=== PATIENT | female | born 1965 | race Caucasian/White ===

== ENCOUNTER 2016-11-17 17:38 | Emergency (ER) | payer MEDICARE, MEDICAID ==
[2016-11-17] MEDS ORDERED: Albuterol/Ipratropium NEB.SOL* Albuterol 2.5 MG/Ipratropium 0.5 MG 3 ML INH ONE (18:43)
[2016-11-17 19:09] LABS: Hematocrit 37 % (35-47); Hemoglobin 12.1 g/dl (12.0-16.0); Mean Corpuscular HGB Conc 32 g/dl (31-36); Mean Corpuscular Hemoglobin 27 pg (27-31); Mean Corpuscular Volume 85 fL (80-97); Mean Platelet Volume 9 um3 (7.4-10.4); Red Blood Count 4.41 10^6/ul (4.0-5.4); Red Cell Distribution Width 15 % (10.5-15); White Blood Count 6.3 10^3/ul (3.5-10.8)
[2016-11-17 19:23] LABS: Albumin 4.1 g/dL (3.2-5.2); BUN/Creatinine Ratio 22.2 (8-20); Calcium 10.5 mg/dL (8.6-10.3); EGFR African American 76.4 (>60); EGFR Non-African American 59.4 (>60); Globulin 3.2 g/dL (2-4); Potassium 4.2 mmol/L (3.5-5.0); Total Bilirubin 0.2 mg/dL (0.2-1.0); Total Protein 7.3 g/dL (6.4-8.9)
[2016-11-17] MEDS ORDERED: Iodixanol* (CONTRAST) 320 MG/ML 100 ML SDV IV ONE (19:31)
--- NOTE | 2016-11-17 20:34 | RAD ---
Indication: COPD, shortness of breath. Contrast: Administered 159.6 ml of VISAPAQUE 320 mgi/ml CTA of the chest was performed after IV contrast administration. Coronal and sagittal reconstructed images were obtained. The pulmonary arterial tree is well opacified. There are no filling defects present to suggest pulmonary embolus. The aorta demonstrates no evidence of aneurysm or aortic dissection. The heart demonstrates no pericardial effusion. The trachea and major bronchi appear patent. The lung pineda demonstrate no evidence of alveolar consolidation. No focal masses are noted. A large amount of collaterals are noted along the right chest wall. Etiology of this is unclear. The axilla demonstrates no evidence of abnormal adenopathy. IMPRESSION: No evidence of pulmonary embolus is noted.
[2016-11-17 21:17] VITALS: BP 110/83
--- NOTE | 2016-12-01 20:32 | ED ---
Ino Edwards Salem, scribed for Wilda Dudley MD on 11/17/16 at 1841 . Shortness of Breath - HPI Summary HPI Summary: Patient is a 51 y/o F who presents to the ED with SOB for the past 3 months. She reports high BP (146/81 upon examination) and coughing. She also reports sharp pain with deep breaths in left anterior chest at 0930 this morning and cramping in her legs, worse on right. She states that she was diagnosed with PNA 2 days ago. She also states that she has been taking Z-pack on and off for the past 3 months, as well as Prednisone and Levaquin since August 2016. PMHx of COPD, but pt does not use O2 at home. She states that she does use a Nebulizer, but it makes her shake. Pt also states that she stopped smoking in 2011. - History of Current Complaint Chief Complaint: EDShortnessOfBreath Time Seen by Provider: 11/17/16 18:17 Hx Obtained From: Patient Onset/Duration: Gradual Onset, Lasting Weeks, Still Present Timing: Constant Current Severity: Moderate Dyspnea At: Rest Aggrevating Factors: Deep Breaths - Pain. Alleviating Factors: Nothing Associated Signs & Symptoms: Cough (Nonproductive) - Allergy/Home Medications Allergies/Adverse Reactions: Allergies Allergy/AdvReac Type Severity Reaction Status Date / Time Amoxicillin [From Augmentin] Allergy Intermediate Difficulty Verified 10/18/16 10:54 Breathing Ciprofloxacin [From Cipro] Allergy Intermediate Difficulty Verified 10/18/16 10: 54 Breathing Clavulanic Acid Allergy Intermediate Difficulty Verified 10/18/16 10:54 [From Augmentin] Breathing Erythromycin Allergy Intermediate Difficulty Verified 10/18/16 10:54 Breathing Morphine Allergy Intermediate See Comment Verified 10/18/16 10:54 Penicillins [PCN] Allergy Intermediate Difficulty Verified 10/18/16 10:54 Breathing Metoclopramide [From Reglan] AdvReac Unknown PSYCHOSIS Verified 10/18/16 10:54 PMH/Surg Hx/FS Hx/Imm Hx Endocrine/Hematology History: Reports: Hx Thyroid Disease - thyroid cancer with resection Denies: Hx Diabetes - TESTING FOR DIABETES, Hx Anemia, Hx Unexplained Bleeding Cardiovascular History: Reports: Hx Angina, Hx Cardiac Arrest - April 2011 seen at [facility] [place], possible small cardiac arrest per patient report, Hx Hypotension, Hx Hypertension - OCC R/T PAIN OR STRESS Denies: Hx Aneurysm, Hx Angioplasty, Hx Auto Implanted Cardiovert Defib, Hx Cardiomegaly, Hx Congenital Heart Disease, Hx Congestive Heart Failure, Hx Coronary Artery Disease, Hx Deep Vein Thrombosis, Hx Hypercholesterolemia, Hx Pacemaker/ICD, Hx Peripheral Vascular Disease, Hx Rheumatic Fever, Hx Syncope, Hx Valvular Heart Disease, Other Cardiovascular Problems/Disorders Respiratory History: Reports: Hx Asthma, Hx Chronic Obstructive Pulmonary Disease (COPD), Hx Pneumonia, Hx Seasonal Allergies, Hx Sleep Apnea - DOES NOT USE CPAP, Other Respiratory Problems/Disorders - Hx COPD Denies: Hx Cystic Fibrosis, Hx Lung Cancer, Hx Pleural Effusion, Hx Pulmonary Edema, Hx Pulmonary Embolism GI History: Reports: Hx Gastroesophageal Reflux Disease Denies: Hx Cirrhosis, Hx Crohn's Disease, Hx Diverticulosis, Hx Gall Bladder Disease, Hx Gastrointestinal Bleed, Hx Hiatal Hernia, Hx Irritable Bowel, Hx Jaundice, Hx Obstructive Bowel, Hx Ileostomy, Hx Pyloric Stenosis, Hx Ulcer Comment Only: Other GI Disorders - ulcer, incontinence at times History: Reports: Hx Kidney Stones, Other Problems/Disorders - cervical cancer with hysterectomy Denies: Hx Dialysis, Hx Renal Disease Musculoskeletal History: Reports: Hx Arthritis, Hx Rheumatoid Arthritis, Hx Back Problems, Hx Bursitis - L KNEE, Hx Orthopedic Injury, Other Musculoskeletal History - LAMINECTOMY 2007 Denies: Hx Congenital Bone Abnormalities, Hx Fibromyalgia, Hx Gout, Hx Osteoporosis, Hx Scoliosis, Hx Tendonitis Sensory History: Reports: Hx Contacts or Glasses - glasses, Hx Vision Problem Denies: Hx Cataracts, Hx Eye Injury, Hx Eye Prosthesis, Hx Glaucoma, Hx Macular Degeneration, Hx Deafness, Hx Hearing Aid, Hx Hearing Problem, Other Sensory Impairments Opthamlomology History: Reports: Hx Contacts or Glasses - glasses, Hx Vision Problem Denies: Hx Cataracts, Hx Eye Injury, Hx Eye Prosthesis, Hx Glaucoma, Hx Macular Degeneration, Other Sensory Impairments Neurological History: Reports: Hx Headaches, Hx Migraine, Hx Seizures - A CHILD R/T MIGRAINES, Hx Spinal Cord Injury Psychiatric History: Reports: Hx Anxiety - takes xanax, Hx Depression Denies: Hx Panic Disorder - Cancer History Cancer Type, Location and Year: CERVICAL CARCINOMA, THYROID CANCER Hx Chemotherapy: No Hx Radiation Therapy: Yes - Surgical History Surgery Procedure, Year, and Place: LUMBAR SURGERY L3-S1 October. 1979 EYE INJURY [place]- CLEARED IN 2008 VIA ORBIT X-RAYS BY DR [place]. 1991 [place]. 1995 BILATERAL TUBAL LIGATION, [place]. hysterectomy/[place]. 2003 BACK TUMOR BENIGN [facility]. 2007 L3,4,5 DISCECTOMY [facility] [place]. 2003 BREAST BIOPSY [place]. 2012 BACK SURGERY [place] [place]. MULTIPLE RIGHT FOOT SURGERIES ONE AT [facility] [place]. THYROID Hx Anesthesia Reactions: Yes - PT STATES WOKE UP DURING FOOT SURGERY 2009 [facility] [place] - Immunization History Date of Tetanus Vaccine: unknown Infectious Disease History: No Infectious Disease History: Denies: Hx Hepatitis, Hx Tuberculosis, Traveled Outside the [place] in Last 30 Days - Family History Known Family History: Positive: Hypertension, Other - Breast cancer. - Social History Lives: With Family - Daughter. Alcohol Use: None Hx Substance Use: No Substance Use Type: Reports: None Hx Tobacco Use: Yes Smoking Status (MU): Former Smoker Type: Cigarettes Length of Time of Smoking/Using Tobacco: 30 YRS Have You Smoked in the Last Year: No Review of Systems Positive: Other - Lump on right and shoulder. Positive: Chest Pain, Other - High BP. Positive: Shortness Of Breath, Cough Positive: Other - Cramping legs, worse on right. All Other Systems Reviewed And Are Negative: Yes Physical Exam Triage Information Reviewed: Yes Vital Signs On Initial Exam: Initial Vitals Temp Pulse Resp BP Pulse Ox 96.8 F 87 20 146/81 100 11/17/16 17:41 11/17/16 17:41 11/17/16 17:41 11/17/16 17:41 11/17/16 17:41 Vital Signs Reviewed: Yes Appearance: Positive: Well-Appearing, No Pain Distress, Obese Skin: Positive: Warm, Skin Color Reflects Adequate Perfusion, Dry Eyes: Positive: EOMI, BILL Neck: Positive: Supple, Nontender Respiratory/Lung Sounds: Positive: Clear to Auscultation, Breath Sounds Present. Negative: Rales, Rhonchi, Wheezes Cardiovascular: Positive: RRR. Negative: Murmur, Rub Abdomen Description: Positive: Nontender, Soft Musculoskeletal: Positive: Strength/ROM Intact Neurological: Positive: Sensory/Motor Intact, Alert, Oriented to Person Place, Time, CN Intact II-III Psychiatric: Positive: Affect/Mood Appropriate Diagnostics - Vital Signs Vital Signs Temp Pulse Resp BP Pulse Ox 11/17/16 18:23 20 11/17/16 17:44 96.8 F 85 20 146/81 100 11/17/16 17:41 96.8 F 87 20 146/81 100 - Laboratory Result Diagrams: 11/17/16 18:55 11/17/16 18:55 Lab Statement: Any lab studies that have been ordered have been reviewed, and results considered in the medical decision making process. - CT CHEST/Thorax CT Interpretation Completed By: Radiologist - IMPRESSION: No evidence of pulmonary embolus is noted. - EKG 2017 EKG Interpretation: NSR @ 77 bpm. Nml. - Additional Comments Diagnostic Additional Comments: Trop 1: 0.00 Re-Evaluation - Re-Evaluation First Eval Re-Evaluation Time: 20:55 Comment: Pt has thyroid pain and a lymphadenopathy. She will receive referral. Pt is agreeable. Course/Dx - Diagnoses Provider Diagnoses: Dyspnea Discharge - Discharge Plan Condition: Stable Disposition: HOME Patient Education Materials: Dyspnea (ED) Referrals: Kaushik Laurent MD [Medical Doctor] - Jennifer Messina MD [Medical Doctor] - Additional Instructions: Please follow up with Dr. Messina for dyspnea and asthma. In addition, follow up with Dr. Laurent for thyroid pain and lymphadenopathy. The documentation as recorded by the Ino astorga Salem accurately reflects the service I personally performed and the decisions made by me, Wilda Dudley MD.
== END 2016-11-17 21:15 | disposition home or self-care (01) ==
LOC: ED 17:38
DX: R06.00 Dyspnea, unspecified (principal); R06.02 Shortness of breath; R05 Cough; R07.9 Chest pain, unspecified; Z87.891 Personal history of nicotine dependence
CPT/HCPCS: 36415; 71275; 80053; 83605; 84484; 85025; 87040; 93005; 94640; 99282; A9270-GY; Q9967

== ENCOUNTER 2017-06-05 11:50 | Emergency (ER) | payer MEDICARE, MEDICAID ==
[2017-06-05 13:22] VITALS: BP 176/116
== END 2017-06-05 14:09 | disposition left against medical advice (07) ==
LOC: ED 11:50
DX: R07.9 Chest pain, unspecified (principal); Z53.21 Procedure and treatment not carried out due to patient leaving prior to being seen by health care provider
CPT/HCPCS: 93005

== ENCOUNTER 2017-06-06 09:47 | Emergency (ER) | payer MEDICARE, MEDICAID ==
--- NOTE | 2017-06-06 10:15 | ED ---
Abdominal Pain/Female - HPI Summary HPI Summary: 51F presents with abdominal pain for past month. She states she has been suffering from right flank pain for the past month as she has known renal stones. She states pain is sharp. She states starts in right flank to RUQ. She had CT on that showed she had right renal stone. She took ibuprofen and tramadol and pain is 10/10. She has not seen a urologist for this yet. She admits to nausea but no vomiting. She had an episode of diarrhea two days ago. She states pain is now in RUQ for past day. She also admits to chest pain on the left side of the chest that is intermittent for past day. She states the pain is sharp in nature. The pain lasts a couple minutes at a time. She does not know any triggers for the chest pain. She denies any diaphoresis or SOB. She denies any cardiac history. Family history of IA unsure what age of mom. only medical condition is PMH of thyroid cancer. She used to smoke. She had hysterectomy and appendectomy. sees maria de jesus for urology. has had lithrotripsy before. - History of Current Complaint Chief Complaint: EDAbdPain Stated Complaint: ABD PAIN Time Seen by Provider: 06/06/17 09:57 Pain Intensity: 8 Allergies/Adverse Reactions: Allergies Allergy/AdvReac Type Severity Reaction Status Date / Time Amoxicillin [From Augmentin] Allergy Intermediate Difficulty Verified 06/06/17 09:51 Breathing Ciprofloxacin [From Cipro] Allergy Intermediate Difficulty Verified 06/06/17 09: 51 Breathing Clavulanic Acid Allergy Intermediate Difficulty Verified 06/06/17 09:51 [From Augmentin] Breathing Erythromycin Allergy Intermediate Difficulty Verified 06/06/17 09:51 Breathing Morphine Allergy Intermediate See Comment Verified 06/06/17 09:51 Penicillins [PCN] Allergy Intermediate Difficulty Verified 06/06/17 09:51 Breathing Metoclopramide [From Reglan] AdvReac Unknown PSYCHOSIS Verified 06/06/17 09:51 PMH/Surg Hx/FS Hx/Imm Hx Endocrine/Hematology History: Reports: Hx Thyroid Disease - thyroid cancer with resection Denies: Hx Diabetes - TESTING FOR DIABETES, Hx Anemia, Hx Unexplained Bleeding Cardiovascular History: Reports: Hx Angina, Hx Cardiac Arrest - April 2011 seen at [facility] [place], possible small cardiac arrest per patient report, Hx Hypotension, Hx Hypertension - OCC R/T PAIN OR STRESS Denies: Hx Aneurysm, Hx Angioplasty, Hx Auto Implanted Cardiovert Defib, Hx Cardiomegaly, Hx Congenital Heart Disease, Hx Congestive Heart Failure, Hx Coronary Artery Disease, Hx Deep Vein Thrombosis, Hx Hypercholesterolemia, Hx Pacemaker/ICD, Hx Peripheral Vascular Disease, Hx Rheumatic Fever, Hx Syncope, Hx Valvular Heart Disease, Other Cardiovascular Problems/Disorders Respiratory History: Reports: Hx Asthma, Hx Chronic Obstructive Pulmonary Disease (COPD), Hx Pneumonia, Hx Seasonal Allergies, Hx Sleep Apnea - DOES NOT USE CPAP, Other Respiratory Problems/Disorders - Hx COPD Denies: Hx Cystic Fibrosis, Hx Lung Cancer, Hx Pleural Effusion, Hx Pulmonary Edema, Hx Pulmonary Embolism GI History: Reports: Hx Gastroesophageal Reflux Disease Denies: Hx Cirrhosis, Hx Crohn's Disease, Hx Diverticulosis, Hx Gall Bladder Disease, Hx Gastrointestinal Bleed, Hx Hiatal Hernia, Hx Irritable Bowel, Hx Jaundice, Hx Obstructive Bowel, Hx Ileostomy, Hx Pyloric Stenosis, Hx Ulcer Comment Only: Other GI Disorders - ulcer, incontinence at times History: Reports: Hx Kidney Stones, Other Problems/Disorders - cervical cancer with hysterectomy Denies: Hx Dialysis, Hx Renal Disease Musculoskeletal History: Reports: Hx Arthritis, Hx Rheumatoid Arthritis, Hx Back Problems, Hx Bursitis - L KNEE, Hx Orthopedic Injury, Other Musculoskeletal History - LAMINECTOMY 2007 Denies: Hx Congenital Bone Abnormalities, Hx Fibromyalgia, Hx Gout, Hx Osteoporosis, Hx Scoliosis, Hx Tendonitis Sensory History: Reports: Hx Contacts or Glasses - glasses, Hx Vision Problem Denies: Hx Cataracts, Hx Eye Injury, Hx Eye Prosthesis, Hx Glaucoma, Hx Macular Degeneration, Hx Deafness, Hx Hearing Aid, Hx Hearing Problem, Other Sensory Impairments Opthamlomology History: Reports: Hx Contacts or Glasses - glasses, Hx Vision Problem Denies: Hx Cataracts, Hx Eye Injury, Hx Eye Prosthesis, Hx Glaucoma, Hx Macular Degeneration, Other Sensory Impairments Neurological History: Reports: Hx Headaches, Hx Migraine, Hx Seizures - A CHILD R/T MIGRAINES, Hx Spinal Cord Injury, Other Neuro Impairments/Disorders - PAIN CLINIC PT Psychiatric History: Reports: Hx Anxiety - takes xanax, Hx Depression Denies: Hx Panic Disorder - Cancer History Cancer Type, Location and Year: CERVICAL CARCINOMA, THYROID CANCER Hx Chemotherapy: No Hx Radiation Therapy: Yes - Surgical History Surgery Procedure, Year, and Place: LUMBAR SURGERY L3-S1 MAY 18,2016. 1979 EYE INJURY [place]- CLEARED IN 2008 VIA ORBIT X-RAYS BY DR [place]. 1991 [place]. 1995 BILATERAL TUBAL LIGATION, [place]. hysterectomy/2004 [place]. 2003 BACK TUMOR BENIGN [place]. 2007 L3,4,5 DISCECTOMY [facility] [place]. 2003 BREAST BIOPSY [place]. 2012 BACK SURGERY [facility] [place]. MULTIPLE RIGHT FOOT SURGERIES ONE AT [facility] [place]. THYROID Hx Anesthesia Reactions: Yes - PT STATES WOKE UP DURING FOOT SURGERY 2009 [facility] [place] - Immunization History Date of Tetanus Vaccine: unknown Infectious Disease History: No Infectious Disease History: Denies: Hx Hepatitis, Hx Tuberculosis, Traveled Outside the [place] in Last 30 Days - Family History Known Family History: Positive: Cardiac Disease, Hypertension, Other - Breast cancer. - Social History Alcohol Use: None Hx Substance Use: No Substance Use Type: Reports: None, Prescribed Hx Tobacco Use: Yes Smoking Status (MU): Former Smoker Type: Cigarettes Length of Time of Smoking/Using Tobacco: 30 YRS Have You Smoked in the Last Year: No Review of Systems Negative: Fever Positive: Chest Pain Negative: Shortness Of Breath, Cough Positive: Abdominal Pain, Nausea. Negative: Vomiting, Diarrhea All Other Systems Reviewed And Are Negative: Yes Physical Exam Triage Information Reviewed: Yes Vital Signs On Initial Exam: Initial Vitals Temp Pulse Resp BP Pulse Ox 97.9 F 65 16 180/125 99 06/06/17 09:51 06/06/17 09:51 06/06/17 09:51 06/06/17 09:51 06/06/17 09:51 Vital Signs Reviewed: Yes Appearance: Positive: Well-Appearing Skin: Positive: Warm, Dry Head/Face: Positive: Normal Head/Face Inspection Eyes: Positive: Normal, EOMI, BILL, Conjunctiva Clear ENT: Positive: Normal ENT inspection, Pharynx normal, TMs normal Respiratory/Lung Sounds: Positive: Clear to Auscultation, Breath Sounds Present , Other - nontender chest wall Cardiovascular: Positive: Normal, RRR Abdomen Description: Positive: Soft, CVA Tenderness (R), Other: - tenderness RUQ and RLQ, pos delgado Bowel Sounds: Positive: Present Musculoskeletal: Positive: Normal Neurological: Positive: Normal Psychiatric: Positive: Normal - [place] Coma Scale Coma Scale Total: 15 Diagnostics - Vital Signs Vital Signs Temp Pulse Resp BP Pulse Ox 06/06/17 09:51 97.9 F 65 16 180/125 99 - Laboratory Result Diagrams: 06/06/17 10:29 06/06/17 10:29 Lab Statement: Any lab studies that have been ordered have been reviewed, and results considered in the medical decision making process. - Ultrasound No standard instances Ultrasound Interpretation: Positive (See Comments) - IMPRESSION: RIGHT NEPHROLITHIASIS WITHOUT HYDRONEPHROSIS Ultrasound Interpretation Completed By: Radiologist - EKG No standard instances Cardiac Rate: NL EKG Rhythm: Sinus Rhythm ST Segment: Normal EKG Interpretation: normal sinus rhythm EKG Comparison: No Significant Change Abdominal Pain Fem Course/Dx - Course Course Of Treatment: 51F presents with abdominal pain for past month. She states she has been suffering from right flank pain for the past month as she has known renal stones. She states pain is sharp. She states starts in right flank to RUQ. She had CT on that showed she had right renal stone. She took ibuprofen and tramadol and pain is 10/10. She has not seen a urologist for this yet. She admits to nausea but no vomiting. She had an episode of diarrhea two days ago. She states pain is now in RUQ for past day. She also admits to chest pain on the left side of the chest that is intermittent for past day. She states the pain is sharp in nature. She denies any diaphoresis or SOB. She denies any cardiac history. Family history of IA unsure what age of mom. only medical condition is PMH of cancer. She used to smoke. She had hysterectomy. on exam lungs CTA, heart RRR. abdomen tenderness RUQ and right flank. ekg normal sinus rhythm and same as yesterday when LWBS. troponin 1st negative. labs 5.7. crp 9.96. with second troponin normal hear score is 2. u/s shows right neprolithasis without hydro. sign out to Mariely BRYSON pending second troponin, urine, and chest xray. - Diagnoses Differential Diagnosis: Positive: Gall Bladder Disease, IA, Renal Colic, Urinary Tract Infection Provider Diagnoses: Abdominal pain, Chest pain, Renal stone Discharge - Discharge Plan Condition: Stable Disposition: OTHER Discharge Disposition Comment: signed out to Mariely BRYSON pending u/s and troponin Referrals: Franck Jones MD [Primary Care Provider] - Brien Villanueva MD [Medical Doctor] -
[2017-06-06] MEDS ORDERED: NS 0.9% 1000 ML* 1,000 ML IV ONE (10:42)
[2017-06-06 10:48] LABS: Hematocrit 37 % (35-47); Hemoglobin 12.3 g/dl (12.0-16.0); Mean Corpuscular HGB Conc 33 g/dl (31-36); Mean Corpuscular Hemoglobin 29 pg (27-31); Mean Corpuscular Volume 87 fL (80-97); Mean Platelet Volume 9 um3 (7.4-10.4); Red Blood Count 4.26 10^6/ul (4.0-5.4); Red Cell Distribution Width 15 % (10.5-15); White Blood Count 5.7 10^3/ul (3.5-10.8)
[2017-06-06 11:07] LABS: Albumin 3.8 g/dL (3.2-5.2); BUN/Creatinine Ratio 23.4 (8-20); Calcium 10.1 mg/dL (8.6-10.3); EGFR African American 126.3 (>60); EGFR Non-African American 98.2 (>60); Globulin 2.7 g/dL (2-4); Potassium 4.2 mmol/L (3.5-5.0); Total Bilirubin 0.3 mg/dL (0.2-1.0); Total Protein 6.5 g/dL (6.4-8.9)
[2017-06-06] MEDS ORDERED: HYDROmorphone INJ* 2 MG/ML CARPUJECT SYRINGE IV SLOW PU ONE (11:34)
[2017-06-06] MEDS ORDERED: Ondansetron INJ* 2 MG/ML VIAL IV ONE (11:46)
--- NOTE | 2017-06-06 12:04 | RAD ---
HISTORY: Right upper quadrant pain COMPARISONS: CT dated June 03, 2017 TECHNIQUE: Multiple transverse and longitudinal ultrasound images were obtained of the abdomen using grayscale and color Doppler imaging. Additional images were obtained of the bladder. FINDINGS: LIVER: The liver is normal in shape, size, contour, and echogenicity. There are no focal parenchymal masses. There is normal hepatopedal flow of the portal vein on Doppler imaging. BILIARY TREE: There is no intrahepatic or extrahepatic biliary dilatation. The common duct measures 0.4 cm. GALLBLADDER: The gallbladder is well-visualized. There is no cholelithiasis, gallbladder wall thickening, pericholecystic fluid, or sonographic Tello sign. PANCREAS: The head of the pancreas is unremarkable. The tail of the pancreas is not well visualized secondary to overlying bowel gas. SPLEEN: The spleen is normal in shape, size, contour, and echotexture. The spleen measures 10.8 x 3.2 x 3.1 cm. RIGHT KIDNEY: The right kidney is normal in shape, size, contour, and echogenicity. Multiple shadowing foci noted consistent with the stones noted on CT. There is no hydronephrosis. The right kidney measures 12.1 x 5.7 x 5.6 cm. LEFT KIDNEY: The left kidney is normal in shape, size, contour, and echogenicity. There is no hydronephrosis or nephrolithiasis. The left kidney measures 11.9 x 5 x 5.2 cm. AORTA AND IVC: The aorta and IVC are unremarkable. FLUID: There are no pleural effusions. There is no free fluid within the hepatorenal recess. OTHER FINDINGS: Bilateral ureteral jets are identified. IMPRESSION: RIGHT NEPHROLITHIASIS WITHOUT HYDRONEPHROSIS
--- NOTE | 2017-06-06 12:19 | RAD ---
HISTORY: Chest pain COMPARISONS: June 23, 2015 VIEWS: 4: Frontal dual-energy and lateral views of the chest. FINDINGS: CARDIOMEDIASTINAL SILHOUETTE: The cardiomediastinal silhouette is normal. MUSTAPHA: The mustapha are normal. PLEURA: The costophrenic angles are sharp. No pleural abnormalities are noted. LUNG PARENCHYMA: The lungs are clear. ABDOMEN: The upper abdomen is clear. There is no subphrenic gas. BONES AND SOFT TISSUES: No bone or soft tissue abnormalities are noted. OTHER: None. IMPRESSION: NO ACTIVE CARDIOPULMONARY DISEASE.
[2017-06-06] MEDS ORDERED: Lidocaine 2% VISCOUS* 15 ML UDC PO ONE (12:48)
[2017-06-06] MEDS ORDERED: Al Hydrox/Mg Hydrox/Simet LIQ* 30 ML UDC PO ONE (12:48)
[2017-06-06 14:10] LABS: Urine Bacteria Absent (Absent); Urine Bilirubin Negative (Negative); Urine Glucose Negative (Negative); Urine Nitrite Negative (Negative)
[2017-06-06] MEDS ORDERED: Pantoprazole IV* 40 MG IV ONE (14:16)
[2017-06-06] MEDS ORDERED: Ketorolac INJ* 30 MG/ML 1 ML VIAL IV PUSH ONE (14:16)
--- NOTE | 2017-06-06 15:15 | ED ---
Progress - Progress Note Progress Note: Pt signed out by Laura Cool PA-C pending U/A, 2nd troponin and ab U/S. She presents today with persistent Rt side pain. CT on 06/03/2017 reveals Rt nephrolithiasis (increased burden compared to previous CT in January of 2016) w/ o hydronephrosis, obstruction, pyelonephrosis. Today she returns for persistent pain in Rt side but also admits to intermittent chest pain w/ SOB. She had an U/ S to assess for hydronephrosis which returns negative (all other structures are neg as well including gallbladder/liver). U/A + for hematuria (+2 blood, +3 RBC' s) no protein, no bacteria. Pt reports pain feels similar to nephrolithiasis pain she's had in the past but also feels like GI pain she's had w/ ulcer in the past. Reports chest pain started last night after eating spicy chicken (by accident) - tried antacid w/o relief. Reports stools have been darker since Rt side pain started 2 months ago. Denies edwin hematochezia and no vomiting. Her 2nd troponin was neg. She was trialed with a GI cocktail - no relief of chest/ ab pain. Trialed w/ IV dilaudid - no relief however BP reduced. Spoke w/ Dr. Mcdonough to discuss pt's Rt side pain possibly from worsening of stones as she has hematuria. He requests a KUB for further investigation today and will call back to discuss necessity of intervention. CT from 06/03 although w/o contrast does not reveal concerns for acute pathology. She will be trialed on toradol and protonix pending KUB. Stool occult blood is neg, H&H normal and BP normal to high, no tachycardia so acute GI bleed is not considered at this time although she may have GERD/gastric irritation based on sx. 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 UPDATE: reassessed after toradol and protonix - she reports chest pain has improved. Will have her hold all NSAID's at home and start PPI w/ close f/u w/ PCP. Again, does not appear to have acute GI bleed here today. Discussed danger s/sx of when to return to ED. Re: renal lithiasis, KUB does not reveal stones. Will provide with short course of norco as pt already takes tramadol routinely. She is advised to strain urine and f/u w/ Dr. Mcdonough - discussed case w/ him. SHe will return to ED if she develops fever, chills, nausea, vomiting, diarrhea, hematochezia, difficulty with urination. Re-Evaluation - Re-Evaluation First Eval Change: Unchanged - s/p dialudid and GI cocktail Second Eval Change: Improved - s/p toradol and protonix Course/Dx - Course Course Of Treatment: 51F presents with abdominal pain for past month. She states she has been suffering from right flank pain for the past month as she has known renal stones. She states pain is sharp. She states starts in right flank to RUQ. She had CT on that showed she had right renal stone. She took ibuprofen and tramadol and pain is 10/10. She has not seen a urologist for this yet. She admits to nausea but no vomiting. She had an episode of diarrhea two days ago. She states pain is now in RUQ for past day. She also admits to chest pain on the left side of the chest that is intermittent for past day. She states the pain is sharp in nature. She denies any diaphoresis or SOB. She denies any cardiac history. Family history of SC unsure what age of mom. only medical condition is PMH of cancer. She used to smoke. She had hysterectomy. on exam lungs CTA, heart RRR. abdomen tenderness RUQ and right flank. ekg normal sinus rhythm and same as yesterday when LWBS. troponin 1st negative. labs 5.7. crp 9.96. with second troponin normal hear score is 2. u/s shows right neprolithasis without hydro. sign out to Mariely BRYSON pending second troponin, urine, and chest xray. - Diagnoses Provider Diagnoses: Abdominal pain, Chest pain, Renal stone, GERD (gastroesophageal reflux disease)
--- NOTE | 2017-06-06 15:32 | RAD ---
INDICATION: Right flank abdominal pain with nephrolithiasis. COMPARISON: Comparison is made with a prior CT of the abdomen and pelvis from June 03, 2017. TECHNIQUE: Frontal supine films of the abdomen were obtained. FINDINGS: The small bowel and colon appear nondistended. The previously noted right renal calculi seen on the CT study are not well visualized on the x-ray exam. The patient is status post laminectomy and posterior spinal fusion at the L3-S1 levels. IMPRESSION: THE PREVIOUSLY NOTED RIGHT RENAL CALCULI SEEN ON THE CT STUDY ARE NOT WELL SEEN ON THE X-RAY EXAM.
[2017-06-06 17:14] VITALS: BP 134/71
== END 2017-06-06 17:13 | disposition home or self-care (01) ==
LOC: ED 09:47
DX: R10.11 Right upper quadrant pain (principal); R07.9 Chest pain, unspecified; N20.0 Calculus of kidney; K21.9 Gastro-esophageal reflux disease without esophagitis; Z85.850 Personal history of malignant neoplasm of thyroid; I10 Essential (primary) hypertension; J44.9 Chronic obstructive pulmonary disease, unspecified
CPT/HCPCS: 36415; 71020; 74000; 76700; 80053; 81003; 81015; 82272; 83605; 83690; 84484; 85025; 86141; 87086; 93005; 96360; 96374; 96375; 99284; A9270-GY; J1170; J1885; J2405

== ENCOUNTER 2018-04-11 12:21 | Emergency (ER) | payer MEDICARE, MEDICAID ==
--- OUTSIDE RECORDS SUMMARY | 2018-04-11 13:23 | XMS REPORT | Continuity of Care Document ---
:1965 External Reference #:[id number] Author Name Minesh Garcia MD Address [address] [place] [address] Care Team Providers Name Role Phone Franck Jones MD Care Team Information Manager Of Data Unavailable Franck Jones MD Primary Care Physician Unavailable Payers Type Date Identification Numbers Payment Provider Subscriber Policy Number: [id number] Medicare [facility] Josefina Kessler PayID: [id number] [address] [place] [address] Policy Number: [id number] Medicaid MD Josefian Kessler PayID: [id number] [address] [place] [address] Advance Directives Description No Information Available Problems Date Description Provider Status Onset: 09/16/2017 Chronic allergic conjunctivitis Lizzie Chan NP Active Onset: 02/01/2017 Uncomplicated moderate persistent Minesh Garcia MD Active asthma Onset: 02/01/2017 Allergic rhinitis Minesh Garcia MD Active Onset: 02/01/2017 Allergic rhinitis due to pollen Minesh Garcia MD Active Family History Date Family Member(s) Problem(s) Comments General Allergies General Asthma Social History Type Date Description Comments Sex Unknown Home Environment Has central air Home Environment There is no basement Home Environment The floors are carpeted Home Environment The floors are tile Home Environment Uses propane gas heating Smoke-Free Home is smoke-free Pets 2 dogs Pets Animals sleep in bedroom Pets Fish Tobacco Use Start: Unknown End: Unknown Quit Smoking Status Reviewed: 03/18/17 Quit Tobacco Use Start: Unknown End: Unknown Patient is a former smoker Allergies, Adverse Reactions, Alerts Date Description Reaction Status Severity Comments 02/01/2017 Amoxicillin Active 02/01/2017 Ciprofloxacin Active 02/01/2017 Morphine Liposomal Active 02/01/2017 Metoclopramide Active 02/01/2017 Erythromycin Active Medications Medication Date Status Form Strength Qnty SIG Indications Ordering Provider Levocetirizine 03/18 Active Tablets 5mg 30tab Take One J30.1 Bill, Dihydrochloride /2016 s Tablet By SAVANNAH Alcantar Mouth Once Daily Advair Diskus 02/01 Active Aerosol 500-50mcg 60uni 1 puff /Dose ts twice a Consuelo Garcia MD Xyzal Allergy 02/01 Active Tablets 5mg 30tab take 1 24H s tablet (5 Consuelo Garcia MD mg) by oral route once daily as needed Proair HFA 02/01 Active Aerosol 108(90Bas 8.500 2 puffs J30.1 e) gm every 4 Consuelo Garcia MD mcg/Act as needed Mometasone 02/01 Active Suspension 50mcg/Act 51gm instill 2 J30.1 Christopher Furoate sprays Consuelo Garcia MD into each nostril once daily Pazeo 02/01 Active Solution 0.7% 2.500 one drop J30.1 ml each eye Consuelo Garcia MD as needed every day as needed Tramadol HCL ER Active Unknown /0000 Albuterol Active Unknown Sulfate /0000 Levothyroxine Active Unknown Sodium /0000 Montelukast Active Tablets 10mg Franck Jones Sodium MD Lucy Alprazolam Active Tablets 0.25mg Take 1 Unknown /0000 Tablet By Mouth Three Times Daily as Needed For Anxiety - Maximum Daily Dose Of 3 Per Day Bisacodyl Ec Active Tablets DR 5mg Take 1-2 Unknown /0000 Tablets By Mouth Every Day as Needed For Constipat ion Tramadol HCL Active Tablets 50mg Franck Jones /Tiffany Ayala MD Potassium Active Tablets ER 10Meq Take 1 Unknown Chloride Maira ER /0000 Tablet By Mouth Every Day For Potassium Furosemide Active Tablets 20mg Take 1 Unknown /0000 Tablet By Mouth Every Day as Needed For Fluid Retention Diclofenac Active Gel 1% Apply 2 Unknown Sodium Grams To Painful Area Of Lower Back Up To Four Times Daily as Needed Fluticasone Active Suspension 50mcg/Act [place] 1 Unknown Propionate To 2 Sprays Into Each Nostril Nightly AT Bedtime Hydrocodone-Acet Active Tablets 5-325mg Take One Unknown aminophen Tablet By Mouth Every 6 Hours as Needed For Pain Maximum Daily Dose Of 4Per Day Dilt-XR Active Caps ER 120mg Take 1 Unknown /0000 24HR Capsule By Mouth Two Times Daily For High Blood Pressure Citalopram Active Tablets 20mg Take 1 Unknown Hydrobromide / Tablet By Mouth Every Day For Anxiety Spironolactone/H Active Tablets 25-25mg Take 1 Unknown ydrochlorothiazi / Tablet By de Mouth Two Times Daily For Blood Pressure And Fluid Retention Omeprazole Active Capsules 40mg Ricky Jones DR Lucy MD Triamterene/Hydr Active Tablets 37.5-25mg Take 1 Unknown ochlorothiazide / Tablet By Mouth Every Day If Needed For Fluid Retention And Blood Pressure Levothyroxine Active Tablets 137mcg Take 1 Unknown Sodium Tablet By Mouth Every Day Albuterol Active Nebulizer (2.5mg/3M Inhale Unknown Sulfate L) 0.083% The Contents Of 1 Vial Via Nebulizer Four Times Daily as Needed Citalopram Active Tablets 10mg Take 1 Unknown Hydrobromide Tablet By Mouth Every Day In The Morning For Anxiety Ipratropium Active Solution 0.02% Use With Unknown [place] Albuterol In Nebulizer 1 To 4 Times Daily as Needed Triamterene/Hydr Active Capsules 37.5-25mg Take 1 Unknown ochlorothiazide /0000 Capsule By Mouth Every Day as Needed For Fluid And Blood Pressure Azithromycin Active Tablets 250mg Franck Jones /Tiffany Ayala MD Lorazepam Active Tablets 0.5mg Trey Josefina Chin Atenolol Active Tablets 25mg Franck Jones /Tiffany Ayala MD Nitrofurantoin Active Capsules 100mg Unknown Monohydrate/Macr ocrystals Montelukast Active Tablets 10mg Franck Jones Sodium /0000 MD Lucy Potassium Active Tablets ER 10Meq Take 1 Unknown Chloride Maira ER /0000 Tablet By Mouth Every Day For Potassium Fluticasone Active Suspension 50mcg/Act [place] 1 Unknown Propionate To 2 Sprays Into Each Nostril Nightly AT Bedtime Hydrocodone-Acet Active Tablets 5-325mg Take One Unknown aminophen / Tablet By Mouth Every 6 Hours as Needed For Pain Maximum Daily Dose Of 4Per Day Dilt-XR Active Caps ER 120mg Take 1 Unknown /0000 24HR Capsule By Mouth Two Times Daily For High Blood Pressure Citalopram Active Tablets 20mg Take 1 Unknown Hydrobromide / Tablet By Mouth Every Day For Anxiety Levocetirizine Active Tablets 5mg Take 1 Unknown Dihydrochloride /0000 Tablet By Mouth Every Day as Needed For Allergies Spironolactone/H Active Tablets 25-25mg Take 1 Unknown ydrochlorothiazi / Tablet By de Mouth Two Times Daily For Blood Pressure And Fluid Retention Triamterene/Hydr Active Tablets 37.5-25mg Take 1 Unknown ochlorothiazide /0000 Tablet By Mouth Every Day If Needed For Fluid Retention And Blood Pressure Levothyroxine Active Tablets 137mcg Take 1 Unknown Sodium / Tablet By Mouth Every Day Albuterol Active Nebulizer (2.5mg/3M Inhale Unknown Sulfate /0000 L) 0.083% The Contents Of 1 Vial Via Nebulizer Four Times Daily as Needed Citalopram Active Tablets 10mg Take 1 Unknown Hydrobromide /0000 Tablet By Mouth Every Day In The Morning For Anxiety Ipratropium Active Solution 0.02% Use With Unknown [place] / Albuterol In Nebulizer 1 To 4 Times Daily as Needed Triamterene/Hydr Active Capsules 37.5-25mg Take 1 Unknown ochlorothiazide /0000 Capsule By Mouth Every Day as Needed For Fluid And Blood Pressure Nitrofurantoin Active Capsules 100mg Unknown Monohydrate/Macr ocrystals Prednisone 04/22 Hx Tablets 10mg 30tab Take 3 s tablets Consuelo Garcia MD - by mouth 03/26 twice a /2018 day for 5 days. Take with food. Naproxen DR Hx Unknown / - 03/26 Singulair Hx Unknown / - 02/01 Advair Diskus Hx Unknown / - 02/01 Claritin Hx Unknown / - 02/01 Medications Administered in Office Medication Date Status Form Strength Qnty SIG Indications Ordering Provider Allergy 03/26/ Administered Injection Christopher Injection 2 2017 Consuelo Garcia MD Or More Allergy 03/14/ Administered Injection Christopher Injection 2 2017 Consuelo Garcia MD Or More Allergy 03/12/ Administered Injection Christopher Injection 2 2017 Consuelo Garcia MD Or More Allergy 03/03/ Administered Injection Christopher Injection 2 2017 Consuelo Garcia MD Or More Allergy 02/26/ Administered Injection Christopher Injection 2 2017 Consuelo Garcia MD Or More Allergy 02/24/ Administered Injection Christopher Injection 2 2017 Consuelo Garcia MD Or More Allergy 02/21/ Administered Injection Christopher Injection 2 2017 Consuelo Garcia MD Or More Allergy 02/03/ Administered Injection Christopher Injection 2 2017 Consuelo Garcia MD Or More Allergy 01/27/ Administered Injection Christopher Injection 2 2018 Consuelo Garcia MD Or More Allergy 01/20/ Administered Injection Christopher Injection 2 2018 Consuelo Garcia MD Or More Allergy 01/06/ Administered Injection Christopher Injection 2 2018 Consuelo Garcia MD Or More Allergy 01/03/ Administered Injection Christopher Injection 2 2017 Consuelo Garcia MD Or More Allergy 01/03/ Administered Injection Injection 1 Injection 2 2017 Or More Allergy 12/23/ Administered Injection Christopher Injection 2 2018 Consuelo Garcia MD Or More Allergy 12/13/ Administered Injection Christopher Injection 2 2018 Consuelo Garcia MD Or More Allergy 12/09/ Administered Injection Christopher Injection 2 2018 Consuelo Garcia MD Or More Allergy 12/02/ Administered Injection Christopher Injection 2 2017 Consuelo Garcia MD Or More Allergy 11/25/ Administered Injection Christopher Injection 2 2018 Consuelo Garcia MD Or More Allergy 11/22/ Administered Injection Christopher Injection 2 2017 Consuelo Garcia MD Or More Allergy 11/18/ Administered Injection Christopher Injection 2 2017 Consuelo Garcia MD Or More Allergy 11/08/ Administered Injection Christopher Injection 2 2018 Consuelo Garcia MD Or More Allergy 11/04/ Administered Injection Christopher Injection 2 2017 Consuelo Garcia MD Or More Allergy 10/28/ Administered Injection Christopher Injection 2 2017 Consuelo Garcia MD Or More Allergy 10/21/ Administered Injection Christopher Injection 2 2017 Consuelo Garcia MD Or More Allergy 10/14/ Administered Injection Christopher Injection 2 2017 Consuelo Garcia MD Or More Allergy 10/09/ Administered Injection Christopher Injection 2 2017 Consuelo Garcia MD Or More Allergy 09/30/ Administered Injection Christopher Injection 2 2017 Consuelo Garcia MD Or More Allergy 09/23/ Administered Injection Christopher Injection 2 2017 Consuelo Garcia MD Or More Allergy 09/16/ Administered Injection Christopher Injection 2 2017 Consuelo Garcia MD Or More Allergy 06/03/ Administered Injection Christopher Injection 2 2016 Consuelo Garcia MD Or More Allergy 05/27/ Administered Injection Christopher Injection 2 2016 Consuelo Garcia MD Or More Allergy 05/20/ Administered Injection Christopher Injection 2 2016 Consuelo Garcia MD Or More Allergy 05/13/ Administered Injection Christopher Injection 2 2016 Consuelo Garcia MD Or More Allergy 05/06/ Administered Injection Christopher Injection 2 2016 Consuelo Garcia MD Or More Allergy 04/15/ Administered Injection Christopher Injection 2 2016 Consuelo Garcia MD Or More Allergy 04/08/ Administered Injection Christopher Injection 2 2016 Consuelo Garcia MD Or More Allergy 04/01/ Administered Injection Christopher Injection 2 2016 Consuelo Garcia MD Or More Immunizations Description No Information Available Vital Signs Date Vital Result Comment 03/26/2018 10:07am BP Systolic 132 mmHg BP Diastolic 82 mmHg Height 60 inches 5'0" Weight 240.00 lb BMI (Body Mass Index) 46.9 kg/m2 Heart Rate 72 /min Respiratory Rate 18 /min O2 % BldC Oximetry 98 % 03/18/2017 3:00pm BP Systolic 118 mmHg BP Diastolic 78 mmHg Height 60 inches 5'0" Weight 240.12 lb BMI (Body Mass Index) 46.9 kg/m2 Heart Rate 66 /min Respiratory Rate 10 /min Body Temperature 97.2 F O2 % BldC Oximetry 97 % 02/01/2017 9:01am BP Systolic 136 mmHg BP Diastolic 84 mmHg Height 60 inches 5'0" Weight 240.00 lb BMI (Body Mass Index) 46.9 kg/m2 Heart Rate 68 /min Respiratory Rate 14 /min Body Temperature 96.4 F O2 % BldC Oximetry 98 % Results Description No Information Available Procedures Date Code Description Status 03/26/2018 10286 Allergy Injection 2 Or More Completed 03/26/2018 16161 Bronchodilation Responsiveness Spirometry Pre/Post Completed Bronchodil Adm 03/14/2018 18957 Allergy Injection 2 Or More Completed 03/12/2018 06679 Allergy Injection 2 Or More Completed 03/03/2018 74296 Allergy Injection 2 Or More Completed 02/26/2018 74933 Allergy Injection 2 Or More Completed 02/24/2018 99644 Allergy Injection 2 Or More Completed 02/21/2018 00328 Allergy Injection 2 Or More Completed 02/03/2018 52390 Allergy Injection 2 Or More Completed 01/27/2018 37864 Allergy Injection 2 Or More Completed 01/20/2018 01910 Allergy Injection 2 Or More Completed 01/06/2018 39570 Allergy Injection 2 Or More Completed 01/03/2018 51835 Allergy Injection 2 Or More Completed 01/03/2018 69687 Allergy Injection 2 Or More Completed 12/23/2017 59902 Allergy Injection 2 Or More Completed 12/13/2017 38206 Allergy Injection 2 Or More Completed 12/09/2017 46830 Allergy Injection 2 Or More Completed 12/02/2017 24622 Allergy Injection 2 Or More Completed 11/25/2017 20774 Allergy Injection 2 Or More Completed 11/22/2017 32028 Allergy Injection 2 Or More Completed 11/18/2017 92965 Allergy Injection 2 Or More Completed 11/08/2017 53814 Allergy Injection 2 Or More Completed 11/04/2017 07996 Allergy Injection 2 Or More Completed 10/28/2017 90474 Allergy Injection 2 Or More Completed 10/21/2017 28891 Allergy Injection 2 Or More Completed 10/14/2017 33242 Allergy Injection 2 Or More Completed 10/09/2017 38173 Allergy Injection 2 Or More Completed 09/30/2017 38054 Allergy Injection 2 Or More Completed 09/23/2017 26491 Allergy Injection 2 Or More Completed 09/16/2017 18885 Allergy Injection 2 Or More Completed 09/16/2017 25024 Bronchodilation Responsiveness Spirometry Pre/Post Completed Bronchodil Adm 09/16/2017 69030 Bronchodilation Responsiveness Spirometry Pre/Post Completed Bronchodil Adm 06/03/2017 58853 Allergy Injection 2 Or More Completed 05/27/2017 60853 Allergy Injection 2 Or More Completed 05/20/2017 30224 Allergy Injection 2 Or More Completed 05/13/2017 94735 Allergy Injection 2 Or More Completed 05/06/2017 34396 Allergy Injection 2 Or More Completed 04/15/2017 52949 Allergy Injection 2 Or More Completed 04/08/2017 56823 Allergy Injection 2 Or More Completed 04/01/2017 71576 Allergy Injection 2 Or More Completed 03/20/2017 70424 Allergy Antigens Single Or Multiple Completed 03/14/2017 32417 Allergy Tests Percutaneous W/ Allergenic Extracts Completed 02/01/2017 65008 Nitric Oxide Gas Determination Completed 02/01/2017 02789 Allergy Tests Percutaneous W/ Allergenic Extracts Completed 02/01/2017 36934 Bronchodilation Responsiveness Spirometry Pre/Post Completed Bronchodil Adm Encounters Type Date Location Provider Dx Diagnosis Office Visit 03/26/2018 Kymberly Garcia J30.1 Allergic rhinitis 10:00a MD due to pollen J30.89 Other allergic rhinitis J45.40 Moderate persistent asthma, uncomplicated Office Visit 09/16/2017 9:00a [place] Lizzie Chan NP J45.40 Moderate persistent asthma, uncomplicated J30.1 Allergic rhinitis due to pollen H10.45 Other chronic allergic conjunctivitis Office Visit 03/18/2017 3:00p [place] Penny RPA-C J30.1 Allergic rhinitis due to pollen J30.89 Other allergic rhinitis J45.40 Moderate persistent asthma, uncomplicated Office Visit 02/01/2017 9:[place] Garcia J30.1 Allergic rhinitis MD due to pollen J30.89 Other allergic rhinitis J45.40 Moderate persistent asthma, uncomplicated Plan of Treatment Future Appointment(s):04/11/2018 9:55 am - Injection 1 at [id number]/23/2019 10: 00 am - SAVANNAH Stokes at [id number]/26/2018 - Minesh Garcia MDJ30.1 Allergic rhinitis due to swocuxV18.89 Other allergic baualgzoY02.40 Moderate persistent asthma, uncomplicated
--- NOTE | 2018-04-11 15:47 | RAD ---
HISTORY: cp COMPARISONS: October 30, 2017 VIEWS: 4: Frontal dual-energy and lateral views of the chest. FINDINGS: CARDIOMEDIASTINAL SILHOUETTE: The cardiomediastinal silhouette is normal. MUSTAPHA: The mustapha are normal. PLEURA: The costophrenic angles are sharp. No pleural abnormalities are noted. LUNG PARENCHYMA: The lungs are clear. ABDOMEN: The upper abdomen is clear. There is no subphrenic gas. BONES AND SOFT TISSUES: No bone or soft tissue abnormalities are noted. OTHER: None. IMPRESSION: NO ACTIVE CARDIOPULMONARY DISEASE.
[2018-04-11 16:10] LABS: ABS Basophils 0.1 10^3/ul (0-0.2); ABS Eosinophils 0 10^3/ul (0-0.6); ABS Lymphocytes 1.8 10^3/ul (1.0-4.8); ABS Monocytes 0.7 10^3/ul (0-0.8); ABS Neutrophils 5.2 10^3/ul (1.5-7.7); ABS Nucleated RBC 0 10^3/ul; Eosinophil % 0.6 % (0-6); Hematocrit 41 % (35-47); Lymphocyte % 23.1 % (25-47); Mean Corpuscular HGB Conc 34 g/dl (31-36); Mean Corpuscular Hemoglobin 30 pg (27-31); Mean Corpuscular Volume 87 fL (80-97); Mean Platelet Volume 7.7 um3 (7.4-10.4); Nucleated Red Blood Cells % 0.1; Platelet Count 254 10^3/ul (150-450); Red Cell Distribution Width 14 % (10.5-15)
[2018-04-11] MEDS ORDERED: NS 0.9% 1000 ML* 1,000 ML IV ONE (16:11)
[2018-04-11 16:40] LABS: EGFR Non-African American 73.5 (>60)
[2018-04-11 16:41] LABS: INR 0.97 (0.77-1.02)
[2018-04-11] MEDS ORDERED: Iohexol 300* (CONTRAST) 10 ML SDV IV ONE (17:44)
--- NOTE | 2018-04-11 18:01 | ED ---
Abdominal Pain/Female - HPI Summary HPI Summary: Patient is a 52 y/o F w/ c/o mid-lower back pain, swelling in left neck, abnormal stools, dizziness, frequent falling, right sided abd pain radiating into pelvis/groin, bilateral swelling to legs, unexplained lumps to right AC with numbness/tingling down right arm, intermittent chest pain, SOB with any activity. In the room, she states that Sx have been present "for a long time" but reports that Sx worsened thirteen [address] Fields and Dr. South recommended patient come to ED for full workup. Patient saw PCP three days ago but is just coming to ED today. PSHx of appendectomy, hysterectomy, rods/plate in back, nephrostomy tube. PMHx of asthma, COPD, HTN, kidney stones. Patient is a former smoker, stopped six years ago. On triage, pain is rated 3/10, nothing is reported to aggravate/alleviate Sx. Home medications and allergies are reviewed. - History of Current Complaint Chief Complaint: EDGeneral Stated Complaint: ABD PAIN Time Seen by Provider: 04/11/18 15:55 Hx Obtained From: Patient Onset/Duration: Lasting Days - onset 13 days ago, Still Present Timing: Constant Severity Currently: Moderate - 6/10 Pain Intensity: 6 Location: Other - right sided Radiates: Yes Radiates to: Other - pelvis/groin Aggravating Factor(s): Nothing Alleviating Factor(s): Nothing Associated Signs and Symptoms: Positive: Chest Pain - swelling in left neck, abnormal stools, dizziness, frequent falling, right sided abd pain radiating into pelvis/groin, bilateral swelling to legs, unexplained lumps to right AC with numbness/tingling down arm, SOB, Back Pain - lower-mid abdominal pain, Other: Allergies/Adverse Reactions: Allergies Allergy/AdvReac Type Severity Reaction Status Date / Time amoxicillin [From Augmentin] Allergy Intermediate Difficulty Verified 04/11/18 13:06 Breathing ciprofloxacin [From Cipro] Allergy Intermediate Difficulty Verified 04/11/18 13: 06 Breathing clavulanic acid Allergy Intermediate Difficulty Verified 04/11/18 13:06 [From Augmentin] Breathing erythromycin base Allergy Intermediate Difficulty Verified 04/11/18 13:06 Breathing morphine Allergy Intermediate See Comment Verified 04/11/18 13:06 Penicillins Allergy Intermediate Difficulty Verified 04/11/18 13:06 Breathing metoclopramide AdvReac Unknown See Comment Verified 04/11/18 13:06 PMH/Surg Hx/FS Hx/Imm Hx Endocrine/Hematology History: Reports: Hx Thyroid Disease - thyroid cancer with resection Denies: Hx Diabetes, Hx Anemia, Hx Unexplained Bleeding Cardiovascular History: Reports: Hx Angina, Hx Cardiac Arrest - April 2011 [place] [facility] [place] possible small cardiac arrest per patient report, Hx Hypotension, Hx Hypertension Denies: Hx Aneurysm, Hx Angioplasty, Hx Auto Implanted Cardiovert Defib, Hx Cardiomegaly, Hx Congenital Heart Disease, Hx Congestive Heart Failure, Hx Coronary Artery Disease, Hx Deep Vein Thrombosis, Hx Hypercholesterolemia, Hx Pacemaker/ICD, Hx Peripheral Vascular Disease, Hx Rheumatic Fever, Hx Syncope, Hx Valvular Heart Disease, Other Cardiovascular Problems/Disorders Respiratory History: Reports: Hx Asthma, Hx Chronic Obstructive Pulmonary Disease (COPD), Hx Pneumonia, Hx Seasonal Allergies, Hx Sleep Apnea - DOES NOT USE CPAP, Other Respiratory Problems/Disorders - Hx COPD Denies: Hx Cystic Fibrosis, Hx Lung Cancer, Hx Pleural Effusion, Hx Pulmonary Edema, Hx Pulmonary Embolism GI History: Reports: Hx Gastroesophageal Reflux Disease Denies: Hx Cirrhosis, Hx Crohn's Disease, Hx Diverticulosis, Hx Gall Bladder Disease, Hx Gastrointestinal Bleed, Hx Hiatal Hernia, Hx Irritable Bowel, Hx Jaundice, Hx Obstructive Bowel, Hx Ileostomy, Hx Pyloric Stenosis, Hx Ulcer Comment Only: Other GI Disorders - ulcer, incontinence at times History: Reports: Hx Kidney Stones, Hx Renal Disease - stones- nephrostomy tube removed, Other Problems/Disorders - cervical cancer with hysterectomy Denies: Hx Dialysis Musculoskeletal History: Reports: Hx Arthritis, Hx Rheumatoid Arthritis, Hx Back Problems, Hx Bursitis - L KNEE, Hx Orthopedic Injury, Other Musculoskeletal History - LAMINECTOMY 2007 Denies: Hx Congenital Bone Abnormalities, Hx Fibromyalgia, Hx Gout, Hx Osteoporosis, Hx Scoliosis, Hx Tendonitis Sensory History: Reports: Hx Contacts or Glasses - glasses, Hx Vision Problem Denies: Hx Cataracts, Hx Eye Injury, Hx Eye Prosthesis, Hx Glaucoma, Hx Macular Degeneration, Hx Deafness, Hx Hearing Aid, Hx Hearing Problem, Other Sensory Impairments Opthamlomology History: Reports: Hx Contacts or Glasses - glasses, Hx Vision Problem Denies: Hx Cataracts, Hx Eye Injury, Hx Eye Prosthesis, Hx Glaucoma, Hx Macular Degeneration, Other Sensory Impairments Neurological History: Reports: Hx Headaches, Hx Migraine, Hx Seizures - A CHILD R/T MIGRAINES, Hx Spinal Cord Injury, Other Neuro Impairments/Disorders - PAIN CLINIC PT Psychiatric History: Reports: Hx Anxiety - takes xanax, Hx Depression Denies: Hx Panic Disorder - Cancer History Cancer Type, Location and Year: CERVICAL CARCINOMA, THYROID CANCER Hx Chemotherapy: No Hx Radiation Therapy: Yes - THYROID - Surgical History Surgery Procedure, Year, and Place: LUMBAR SURGERY L3-S1 October. 1978 EYE INJURY [place]- CLEARED IN 2008 VIA ORBIT X-RAYS BY DR [place]. 1991 [facility]Y [place]. 1995 BILATERAL TUBAL LIGATION, [place]. hysterectomy/2004 [place]. 2003 BACK TUMOR BENIGN [place]. 2007 L3,4,5 [place] [facility] [place]. 2003 [facility]. 2011 BACK SURGERY [place] [facility] [place]. MULTIPLE RIGHT FOOT SURGERIES ONE AT [facility] [place]. THYROID , nephrostomy tube removed, left shoulder Hx Anesthesia Reactions: Yes - PT STATES WOKE UP DURING FOOT SURGERY 2009 [facility] [place] - Immunization History Date of Tetanus Vaccine: unknown Infectious Disease History: No Infectious Disease History: Denies: Hx Hepatitis, Hx Tuberculosis, Traveled Outside the [place] in Last 30 Days - Family History Known Family History: Positive: Cardiac Disease, Hypertension, Other - Breast cancer. - Social History Alcohol Use: None Hx Substance Use: No Substance Use Type: Reports: None Hx Tobacco Use: Yes Smoking Status (MU): Former Smoker Type: Cigarettes Length of Time of Smoking/Using Tobacco: 30 YRS Have You Smoked in the Last Year: No Review of Systems Positive: Other - frequent falling Positive: Chest Pain Positive: Shortness Of Breath Positive: Abdominal Pain Positive: other - abnormal stools Positive: Edema - BLE , Other - swelling at left neck Positive: Other - lumps to AC Neurological: Other - dizziness Positive: Numbness - + tingling down right arm All Other Systems Reviewed And Are Negative: Yes Physical Exam - Summary Physical Exam Summary: Appearance: Well appearing, no pain distress Skin: warm, dry, reflects adequate perfusion Head/face: normal Eyes: EOMI, BILL ENT: normal Neck: supple, non-tender Respiratory: CTA, breath sounds present Cardiovascular: RRR, pulses symmetrical Abdomen: RLQ and RUQ tenderness, soft Bowel: present Musculoskeletal: normal, strength/ROM intact Neuro: normal, sensory motor intact, A&Ox3 Triage Information Reviewed: Yes Vital Signs On Initial Exam: Initial Vitals Temp Pulse Resp BP Pulse Ox 97.3 F 79 16 159/95 97 04/11/18 12:59 04/11/18 12:59 04/11/18 12:59 04/11/18 12:59 04/11/18 12:59 Vital Signs Reviewed: Yes Diagnostics - Vital Signs Vital Signs Temp Pulse Resp BP Pulse Ox 04/11/18 17:27 97.6 F 67 16 97 04/11/18 12:59 97.3 F 79 16 159/95 97 - Laboratory Lab Results: Lab Results 04/11/18 04/11/18 04/11/18 Range/Units 16:01 16:01 16:01 WBC 8.0 (3.5-10.8) 10^3/ul RBC 4.70 (4.00-5.40) 10^6/ul Hgb 14.0 (12.0-16.0) g/dl Hct 41 (35-47) % MCV 87 (80-97) fL MCH 30 (27-31) pg MCHC 34 (31-36) g/dl RDW 14 (10.5-15) % Plt Count 254 (150-450) 10^3/ul MPV 7.7 (7.4-10.4) um3 Neut % (Auto) 65.9 (38-83) % Lymph % (Auto) 23.1 L (25-47) % [place] % (Auto) 8.9 H (0-7) % Eos % (Auto) 0.6 (0-6) % Baso % (Auto) 1.5 (0-2) % Absolute Neuts (auto) 5.2 (1.5-7.7) 10^3/ul Absolute Lymphs (auto) 1.8 (1.0-4.8) 10^3/ul Absolute Monos (auto) 0.7 (0-0.8) 10^3/ul Absolute Eos (auto) 0 (0-0.6) 10^3/ul Absolute Basos (auto) 0.1 (0-0.2) 10^3/ul Absolute Nucleated RBC 0 10^3/ul Nucleated RBC % 0.1 INR (Anticoag Therapy) 0.97 (0.77-1.02) APTT 29.9 (26.0-36.3) seconds Sodium 135 (135-145) mmol/L Potassium 3.7 (3.5-5.0) mmol/L Chloride 100 L (101-111) mmol/L Carbon Dioxide 25 (22-32) mmol/L Anion Gap 10 (2-11) mmol/L BUN 20 (6-24) mg/dL Creatinine 0.82 (0.51-0.95) mg/dL Est GFR ( Amer) 88.9 (>60) Est GFR (Non-Af Amer) 73.5 (>60) BUN/Creatinine Ratio 24.4 H (8-20) Glucose 97 (70-100) mg/dL Lactic Acid (0.5-2.0) mmol/L Calcium 10.5 H (8.6-10.3) mg/dL Magnesium 1.9 (1.9-2.7) mg/dL Total Bilirubin 0.30 (0.2-1.0) mg/dL AST 12 L (13-39) U/L ALT 15 (7-52) U/L Alkaline Phosphatase 99 (34-104) U/L Total Creatine Kinase 91 (10-223) U/L Troponin I 0.00 (<0.04) ng/mL B-Natriuretic Peptide ( - 100) pg/mL Total Protein 7.6 (6.4-8.9) g/dL Albumin 4.4 (3.2-5.2) g/dL Globulin 3.2 (2-4) g/dL Albumin/Globulin Ratio 1.4 (1-3) Lipase 54 (11.0-82.0) U/L 04/11/18 04/11/18 Range/Units 16:01 16:01 WBC (3.5-10.8) 10^3/ul RBC (4.00-5.40) 10^6/ul Hgb (12.0-16.0) g/dl Hct (35-47) % MCV (80-97) fL MCH (27-31) pg MCHC (31-36) g/dl RDW (10.5-15) % Plt Count (150-450) 10^3/ul MPV (7.4-10.4) um3 Neut % (Auto) (38-83) % Lymph % (Auto) (25-47) % [place] % (Auto) (0-7) % Eos % (Auto) (0-6) % Baso % (Auto) (0-2) % Absolute Neuts (auto) (1.5-7.7) 10^3/ul Absolute Lymphs (auto) (1.0-4.8) 10^3/ul Absolute Monos (auto) (0-0.8) 10^3/ul Absolute Eos (auto) (0-0.6) 10^3/ul Absolute Basos (auto) (0-0.2) 10^3/ul Absolute Nucleated RBC 10^3/ul Nucleated RBC % INR (Anticoag Therapy) (0.77-1.02) APTT (26.0-36.3) seconds Sodium (135-145) mmol/L Potassium (3.5-5.0) mmol/L Chloride (101-111) mmol/L Carbon Dioxide (22-32) mmol/L Anion Gap (2-11) mmol/L BUN (6-24) mg/dL Creatinine (0.51-0.95) mg/dL Est GFR ( Amer) (>60) Est GFR (Non-Af Amer) (>60) BUN/Creatinine Ratio (8-20) Glucose (70-100) mg/dL Lactic Acid 1.0 (0.5-2.0) mmol/L Calcium (8.6-10.3) mg/dL Magnesium (1.9-2.7) mg/dL Total Bilirubin (0.2-1.0) mg/dL AST (13-39) U/L ALT (7-52) U/L Alkaline Phosphatase (34-104) U/L Total Creatine Kinase (10-223) U/L Troponin I (<0.04) ng/mL B-Natriuretic Peptide 8 ( - 100) pg/mL Total Protein (6.4-8.9) g/dL Albumin (3.2-5.2) g/dL Globulin (2-4) g/dL Albumin/Globulin Ratio (1-3) Lipase (11.0-82.0) U/L Result Diagrams: 04/11/18 16:01 04/11/18 16:01 Lab Statement: Any lab studies that have been ordered have been reviewed, and results considered in the medical decision making process. - Radiology CXR Radiology Interpretation Completed By: Radiologist Summary of Radiographic Findings: CXR showed no active cardiopulmonary disease. - EKG 1545 Cardiac Rate: NL - rate of 76 BPM EKG Rhythm: Sinus Rhythm Summary of EKG Findings: no acute changes Abdominal Pain Fem Course/Dx - Course Course Of Treatment: Patient is a 52 y/o F w/ c/o mid-lower back pain, swelling in left neck, abnormal stools, dizziness, frequent falling, right sided abd pain radiating into pelvis/groin, bilateral swelling to legs, unexplained lumps to right AC with numbness/tingling down right arm, intermittent chest pain, SOB with any activity. In the room, she states that Sx have been present "for a long time" but reports that Sx worsened [address] Fields and Dr. South recommended patient come to ED for full workup. Patient saw PCP three days ago but is just coming to ED today. Physical exam showed RUQ and RLQ tenderness. During ED course, patient received fluids. Bloodwork/UA was obtained. EKG showed sinus rhythm with rate of 76 BPM, no acute changes. CXR showed no active cardiopulmonary disease. Patient is signed out to Dr. Goldsmith pending US gallbladder and CT abd/pel. Dx of abdominal pain. - Diagnoses Differential Diagnosis: Positive: Appendicitis, Diverticulitis, Peptic Ulcer Disease, Renal Colic Provider Diagnoses: Abdominal pain Discharge - Sign-Out/Discharge Documenting (check all that apply): Sign-Out Patient Signing out patient TO: Ray Goldsmith Receiving patient FROM: Jesse Bernal - Discharge Plan Condition: Good Disposition: HOME Patient Education Materials: Abdominal Pain (ED) Referrals: Franck Jones MD [Primary Care Provider] - 3 Days - Billing Disposition and Condition Condition: GOOD Disposition: Home - Attestation Statements Document Initiated by Robertibjose manuel: Yes Documenting Scribe: Román De La Vega Provider For Whom Cecily is Documenting (Include Credential): Jesse Bernal MD Scribe Attestation: Román Edwards scribed for Jesse Bernal MD on 04/12/18 at 0714. Scribe Documentation Reviewed: Yes Provider Attestation: The documentation as recorded by the Román astorga accurately reflects the service I personally performed and the decisions made by , Jesse Bernal MD
[2018-04-11 18:02] LABS: Urine Appearance Clear; Urine Blood 1+ (Negative); Urine Color Straw; Urine Ketones Negative (Negative); Urine Protein Negative (Negative); Urine Red Blood Cell 1+(3-5/hpf) (Absent); Urine Specific Gravity 1.006 (1.010-1.030); Urine Urobilinogen Negative (Negative); Urine White Blood Cell Trace(0-5/hpf) (Absent)
--- NOTE | 2018-04-11 19:17 | RAD ---
EXAM: CT Abdomen and Pelvis With Intravenous Contrast EXAM DATE/TIME: 04/11/2018 6:48 PM CLINICAL HISTORY: 52 years old, female; Pain; Abdominal pain; Prior surgery; Surgery date: 6+ months; Surgery type: Hysterectomy, appendectomy, neph tube, lumbar fusion; Additional info: RT lower quad tend TECHNIQUE: Axial computed tomography images of the abdomen and pelvis with intravenous contrast. All CT scans at this facility use at least one of these dose optimization techniques: automated exposure control; mA and/or kV adjustment per patient size (includes targeted exams where dose is matched to clinical indication); or iterative reconstruction. Coronal and sagittal reformatted images were created and reviewed. CONTRAST: 150 ml of OMNIPAQUE 300 administered intravenously. COMPARISON: A/P WO CT ABD/PEL W/O 06/03/2017 12:51 PM FINDINGS: Lower thorax: No acute findings. ABDOMEN: Liver: Normal. No mass. Gallbladder and bile ducts: Normal. No calcified stones. No ductal dilation. Pancreas: Normal. No ductal dilation. Spleen: Normal. No splenomegaly. Adrenals: Normal. No mass. Kidneys and ureters: There are small nonobstructing right renal calculi noted measuring up to 1 CM noted in the renal pelvis. There is symmetric excretion of contrast with no evidence of hydronephrosis. Stomach and bowel: Normal. No obstruction. No mucosal thickening. Appendix: Status post appendectomy. PELVIS: Bladder: The bladder is partially collapsed limiting evaluation. Reproductive: The patient is status post hysterectomy. ABDOMEN and PELVIS: Intraperitoneal space: Normal. No free air. No significant fluid collection. Bones/joints: There are transpedicular screw is noted in the lower lumbar spine but no evidence of hardware fracture or dislocation. Soft tissues: Unremarkable. Vasculature: There is scattered atherosclerotic disease noted. Lymph nodes: Normal. No enlarged lymph nodes. IMPRESSION: There are small nonobstructing right renal calculi noted measuring up to 1 CM noted in the renal pelvis. There is symmetric excretion of contrast with no evidence of hydronephrosis. To contact [facility] with a general question: Operations Center - [phone] For direct physician to physician contact: Physician Hotline - [phone] [facility] ([facility] Facility ID #[id number])
--- NOTE | 2018-04-11 20:26 | RAD ---
EXAM: US Abdomen Limited, Right Upper Quadrant EXAM DATE/TIME: 04/11/2018 8:16 PM CLINICAL HISTORY: 52 years old, female; Pain; Abdominal pain; Generalized; Additional info: Cholecystitis TECHNIQUE: Real-time ultrasound of the abdomen with image documentation. Examination was focused on the right upper quadrant. COMPARISON: RENAL BLAD US RENAL AND BLADDER 02/03/2015 12:16 PM FINDINGS: Liver: There is fatty infiltration of the liver. Gallbladder: Normal. No gallstones. There is no gallbladder wall thickening. Common bile duct: There is dilatation of the common bile duct measuring 9 mm. Recommend MRCP or CT for further evaluation. Pancreas: Visualized pancreas is unremarkable. Right kidney: The right kidney measures 10.9 x 4.9 x 5.1 CM. There are no renal calculi noted as seen on prior CT, which may have represented early excretion of contrast in the renal calyces. IMPRESSION: 1. The right kidney measures 10.9 x 4.9 x 5.1 CM. There are no renal calculi noted as seen on prior CT, which may have represented early excretion of contrast in the renal calyces. 2.There is dilatation of the common bile duct measuring 9 mm. Recommend MRCP or CT for further evaluation. This 3. There is fatty infiltration of the liver. To contact Couple with a general question: [facility] - [phone] For direct physician to physician contact: Physician Hotline - [phone] [facility] ([facility] Facility ID #[id number])
--- NOTE | 2018-04-11 20:54 | ED ---
Progress - Progress Note Progress Note: Pt signed out from Dr. Bernal. CT ABD/PELVIS results: There si dilation of julián common bile duct measuring up to 9 mm. Recommend MRCP or ERCP for further evaluation. Gall Bladder U/S results: 1. The right kidney measures 10.9 X 4.9 X 5.1 cm. There are no renal calculi noted as seen on prior CT, which may have represented early excretion of contrast in the renal calyces. 2. There is dilation of the common bile duct measuring 9 mm. Recommend MRCP or CT for further evaluation. 3. There is fatty infiltration of the liver. The ER Provider has reviewed these reports. - EKG/XRAY/CT CT: ABD/PEL, see progress note. Course/Dx - Diagnoses Provider Diagnoses: Abdominal pain Discharge - Discharge Plan Referrals: Franck Jones MD [Primary Care Provider] - - Attestation Statements Document Initiated by Scribe: Yes Documenting Scribe: Serge Phillip Provider For Whom Scribe is Documenting (Include Credential): Ray Goldsmith MD Scribe Attestation: Serge Edwards, scribed for Ray Goldsmith MD on 04/11/18 at 2054.
[2018-04-11 21:44] VITALS: BP 131/71
== END 2018-04-11 21:44 | disposition home or self-care (01) ==
LOC: ED 12:21
DX: R10.9 Unspecified abdominal pain (principal); J44.9 Chronic obstructive pulmonary disease, unspecified; I10 Essential (primary) hypertension; Z87.442 Personal history of urinary calculi; Z87.891 Personal history of nicotine dependence; Z85.41 Personal history of malignant neoplasm of cervix uteri; Z85.850 Personal history of malignant neoplasm of thyroid; Z88.0 Allergy status to penicillin; Z88.5 Allergy status to narcotic agent
CPT/HCPCS: 36415; 71046; 74177; 76705; 80053; 81003; 81015; 82550; 83605; 83690; 83735; 83880; 84484; 85025; 85610; 85730; 87086; 93005; 96361; 96374; 99283; Q9967

== ENCOUNTER 2018-11-20 10:03 | Observation (INO) | payer MEDICARE, MEDICAID ==
[2018-11-20] MEDS ORDERED: Aspirin 81 mg CHEW TAB* 81 MG TAB.CHEW PO ONE (10:45)
[2018-11-20 10:46] LABS: ABS Basophils 0.1 10^3/ul (0-0.2); ABS Eosinophils 0.1 10^3/ul (0-0.6); ABS Lymphocytes 1.7 10^3/ul (1.0-4.8); ABS Monocytes 0.6 10^3/ul (0-0.8); ABS Neutrophils 5.2 10^3/ul (1.5-7.7); Eosinophil % 0.9 %; Hematocrit 40 % (35-47); Hemoglobin 13.5 g/dL (12.0-16.0); Lymphocyte % 22.7 %; Mean Corpuscular HGB Conc 34 g/dL (31-36); Mean Corpuscular Hemoglobin 30 pg (27-31); Mean Corpuscular Volume 89 fL (80-97); Mean Platelet Volume 8.1 fL (7.4-10.4); Platelet Count 236 10^3/uL (150-450); Red Blood Count 4.46 10^6 /uL (3.70-4.87); Red Cell Distribution Width 13 % (10-15); White Blood Count 7.7 10^3/uL (3.5-10.8)
[2018-11-20 10:52] LABS: Albumin 4.2 g/dL (3.2-5.2); Calcium 11.4 mg/dL (8.6-10.3); Potassium 3.6 mmol/L (3.5-5.0); Total Bilirubin 0.3 mg/dL (0.2-1.0)
[2018-11-20 10:57] LABS: Albumin/Globulin Ratio 1.4 (1-3); BUN/Creatinine Ratio 26.7 (8-20); EGFR African American 83.8 (>60); EGFR Non-African American 69.3 (>60); Globulin 3.1 g/dL (2-4); Total Protein 7.3 g/dL (6.4-8.9)
[2018-11-20] MEDS: Nitroglycerin TAB 0.4 MG* 0.4 MG TAB SL ONE ×2 (11:00→12:33)
[2018-11-20] MEDS ORDERED: Iohexol 350* (CONTRAST) 500 ML MDV IV ONE (11:13)
[2018-11-20] MEDS ORDERED: Iohexol 300* (CONTRAST) 10 ML SDV IV ONE (11:14)
--- NOTE | 2018-11-20 11:23 | ED ---
HPI Chest Pain - HPI Summary HPI Summary: This patient is a 53 year old F presenting to [facility] with daughter via EMS with a chief complaint of substernal CP that is intermittent since a couple of days ago. Pt called EMS because CP and lower back pain worsened around 0900 today. Pt called daughter at 0900 about the pain. Pt states that substernal CP radiate to arms, neck and jaw. The pt rates the pain currently at 2-3/10 in severity. Pt did not receive NTG or ASA from EMS. Patient also c/o bilat flank pain, sore throat, and notes bilat hand tingling. She makes note of lumps on her arms that are painful, pain is worse at left arm. Per triage, patient also reported her urine has a foul odor and is dark. Pt notes SOB, fever, clamminess/diaphoresis, dizziness, and lightheadedness. She has borderline diabetes. PMHx of HTN, HLD. Patient is a non-smoker and denies alcohol consumption. Pt denies, chills, erythema of eyes, cough, N/V, hematuria, edema, or rash. Patient reports Hx of kindey stones, noting that she had surgery this past June,, for kidney stone removal and nephrostomy tube placed. She notes she has been taking UTI medicine to facilitate urination, but has had dysuria for the past 3 days. Pt has also had a previous hysterectomy and has not been in an airplane or car for longer than an hour recently. Pt had to go to Dr. Sweeney to have the lumps on her arm drained. Her brother and sister both had previous MIs and PEs and her cousin previously had an aneurysm. - History of Current Complaint Time Seen by Provider: 11/20/18 10:15 Hx Obtained From: Patient, Family/Dye Machine Tender - daughter Onset/Duration: Started Days Ago, Still Present - CP has been on and off the past couple of days pain peaked earlier this morning but has resolved to 2-3/10 in severity Timing: Intermittent Initial Severity: Worse Since: Current Severity: Mild Pain Intensity: 3 Pain Scale Used: 0-10 Numeric Chest Pain Radiates: Yes Chest Pain Radiates To:: Back, Arm, Jaw Aggravating Factor(s): Nothing Alleviating Factor(s): Nothing Associated Signs and Symptoms: Positive: Chest Pain, Numbness, Tingling, Dizziness, Shortness of Breath, Fever, Lightheadedness, Diaphoresis, Back Pain, Other: - endorses flank pain; denies erythema of eyes, hematuria, or rash. Negative: Swelling, Chills, Nausea, Cough, Productive Cough, Nonproductive Cough , Abdominal Pain, Vomiting, Edema - Additional Pertinent History Primary Care Physician: [id number] - Allergy/Home Medications Allergies/Adverse Reactions: Allergies Allergy/AdvReac Type Severity Reaction Status Date / Time amoxicillin [From Augmentin] Allergy Intermediate Difficulty Verified 04/11/18 13:06 Breathing ciprofloxacin [From Cipro] Allergy Intermediate Difficulty Verified 04/11/18 13: 06 Breathing clavulanic acid Allergy Intermediate Difficulty Verified 04/11/18 13:06 [From Augmentin] Breathing erythromycin base Allergy Intermediate Difficulty Verified 04/11/18 13:06 Breathing morphine Allergy Intermediate See Comment Verified 04/11/18 13:06 Penicillins Allergy Intermediate Difficulty Verified 04/11/18 13:06 Breathing metoclopramide AdvReac Unknown See Comment Verified 04/11/18 13:06 Home Medications: Home Medications ALPRAZolam TAB* [Xanax TAB*] 0.25 - 0.5 mg PO TID PRN 11/20/18 [History Confirmed 11/20/18] Albuterol inh POWDER (NF) [Proair Respiclick] 2 puff INH Q4HR PRN 11/20/18 [ History Confirmed 11/20/18] Bisacodyl EC TAB* [Dulcolax EC TAB*] 5 - 10 mg PO DAILY PRN 11/20/18 [History Confirmed 11/20/18] Citalopram TAB* [CeleXA TAB*] 40 mg PO DAILY 11/20/18 [History Confirmed ] Fluticasone NASAL SPRAY 50MCG* [Flonase NASAL SPRAY 50MCG*] 1 - 2 spray BOTH NARES BEDTIME 11/20/18 [History Confirmed 11/20/18] Furosemide TAB* [Lasix TAB*] 20 mg PO DAILY 11/20/18 [History Confirmed 11/20/18 ] Ipratropium 0.5MG/2.5ML NEB* [Atrovent 0.5 MG NEB.URIAH*] 0.5 mg INH Q6H PRN 11/20 [History Confirmed 11/20/18] LevoCETirizine TAB (NF) [Xyzal TAB (NF)] 5 mg PO DAILY PRN 11/20/18 [History Confirmed 11/20/18] Lidocaine PATCH 5%* [Lidoderm 5% Patch*] 1 patch TRANSDERM DAILY 11/20/18 [ History Confirmed 11/20/18] LoraTADine TAB(NF) [Claritin 10 MG TAB(NF)] 10 mg PO DAILY 11/20/18 [History Confirmed 11/20/18] Mometasone Furoate [Elocon] 0.1 % TOPICAL BID 11/20/18 [History Confirmed ] Montelukast Sodium TAB* [Singulair TAB*] 10 mg PO BEDTIME 11/20/18 [History Confirmed 11/20/18] Olopatadine 0.1% OPHTH (NF) [Patanol 0.1% OPHTH (NF)] 1 drop BOTH EYES DAILY 12/03 [History Confirmed 11/20/18] Potassium Chloride [Klor-Con M10] 10 meq PO DAILY 11/20/18 [History Confirmed ] Spironolactone/HCTZ 25-25 MG* [Aldactazide 25-25*] 1 tab PO BID 11/20/18 [ History Confirmed 11/20/18] dilTIAZem HCl [Diltiazem 24Hr ER] 120 mg PO BID 11/20/18 [History Confirmed 12/03] traMADol TAB* [Ultram*] 50 mg PO Q6HR PRN 11/20/18 [History Confirmed 11/20/18] PMH/Surg Hx/FS Hx/Imm Hx Endocrine/Hematology History: Reports: Hx Thyroid Disease - thyroid cancer with resection Denies: Hx Diabetes, Hx Anemia, Hx Unexplained Bleeding Cardiovascular History: Reports: Hx Angina, Hx Cardiac Arrest - April 2011 seen at [facility], possible small cardiac arrest per patient report, Hx Hypotension, Hx Hypertension Denies: Hx Aneurysm, Hx Angioplasty, Hx Auto Implanted Cardiovert Defib, Hx Cardiomegaly, Hx Congenital Heart Disease, Hx Congestive Heart Failure, Hx Coronary Artery Disease, Hx Deep Vein Thrombosis, Hx Hypercholesterolemia, Hx Pacemaker/ICD, Hx Peripheral Vascular Disease, Hx Rheumatic Fever, Hx Syncope, Hx Valvular Heart Disease, Other Cardiovascular Problems/Disorders Respiratory History: Reports: Hx Asthma, Hx Chronic Obstructive Pulmonary Disease (COPD), Hx Pneumonia, Hx Seasonal Allergies, Hx Sleep Apnea - DOES NOT USE CPAP, Other Respiratory Problems/Disorders - Hx COPD Denies: Hx Cystic Fibrosis, Hx Lung Cancer, Hx Pleural Effusion, Hx Pulmonary Edema, Hx Pulmonary Embolism GI History: Reports: Hx Gastroesophageal Reflux Disease Denies: Hx Cirrhosis, Hx Crohn's Disease, Hx Diverticulosis, Hx Gall Bladder Disease, Hx Gastrointestinal Bleed, Hx Hiatal Hernia, Hx Irritable Bowel, Hx Jaundice, Hx Obstructive Bowel, Hx Ileostomy, Hx Pyloric Stenosis, Hx Ulcer Comment Only: Other GI Disorders - ulcer, incontinence at times History: Reports: Hx Kidney Stones, Hx Renal Disease - stones- nephrostomy tube removed, Other Problems/Disorders - cervical cancer with hysterectomy Denies: Hx Dialysis Musculoskeletal History: Reports: Hx Arthritis, Hx Rheumatoid Arthritis, Hx Back Problems, Hx Bursitis - L KNEE, Hx Orthopedic Injury, Other Musculoskeletal History - LAMINECTOMY 2007 Denies: Hx Congenital Bone Abnormalities, Hx Fibromyalgia, Hx Gout, Hx Osteoporosis, Hx Scoliosis, Hx Tendonitis Sensory History: Reports: Hx Contacts or Glasses - glasses, Hx Vision Problem Denies: Hx Cataracts, Hx Eye Injury, Hx Eye Prosthesis, Hx Glaucoma, Hx Macular Degeneration, Hx Deafness, Hx Hearing Aid, Hx Hearing Problem, Other Sensory Impairments Opthamlomology History: Reports: Hx Contacts or Glasses - glasses, Hx Vision Problem Denies: Hx Cataracts, Hx Eye Injury, Hx Eye Prosthesis, Hx Glaucoma, Hx Macular Degeneration, Other Sensory Impairments Neurological History: Reports: Hx Headaches, Hx Migraine, Hx Seizures - A CHILD R/T MIGRAINES, Hx Spinal Cord Injury, Other Neuro Impairments/Disorders - PAIN CLINIC PT Psychiatric History: Reports: Hx Anxiety - takes xanax, Hx Depression Denies: Hx Panic Disorder - Cancer History Cancer Type, Location and Year: CERVICAL CARCINOMA, THYROID CANCER Hx Chemotherapy: No Hx Radiation Therapy: Yes - THYROID - Surgical History Surgery Procedure, Year, and Place: LUMBAR SURGERY L3-S1 October. 1979 EYE INJURY [place]- CLEARED IN 2008 VIA ORBIT X-RAYS BY DR [place]. 1991 [facility]. 1995 BILATERAL TUBAL LIGATION, [place]. hysterectomy/2004 [place]. 2003 BACK TUMOR BENIGN [place]. 2007 L3,4,5 DISCECTOMY [facility]. 2004 BREAST BIOPSY [place]. 2012 BACK SURGERY [facility]. MULTIPLE RIGHT FOOT SURGERIES ONE AT [facility]. THYROID , nephrostomy tube removed, left shoulder Hx Anesthesia Reactions: Yes - PT STATES WOKE UP DURING FOOT SURGERY 2009 [facility] - Immunization History Date of Tetanus Vaccine: unknown Infectious Disease History: No Infectious Disease History: Denies: Hx Hepatitis, Hx Tuberculosis, Traveled Outside the [place] in Last 30 Days - UNKNOWN - Family History Known Family History: Positive: Cardiac Disease, Hypertension, Other - Breast cancer. - Social History Alcohol Use: None Hx Substance Use: No Substance Use Type: Reports: None Hx Tobacco Use: Yes Smoking Status (MU): Former Smoker Type: Cigarettes Length of Time of Smoking/Using Tobacco: 30 YRS Have You Smoked in the Last Year: No Review of Systems Positive: Fever, Skin Diaphoresis - clamminess. Negative: Chills Negative: Erythema Positive: Sore Throat Positive: Chest Pain Positive: Shortness Of Breath. Negative: Cough Negative: Abdominal Pain, Vomiting, Nausea Positive: dysuria, flank pain. Negative: hematuria Positive: Myalgia - lower back pain; lumps, pain at arms bilaterally, . Negative: Edema Negative: Rash Neurological: Other - dizziness, lightheadedness Positive: Numbness - tingling on bilat hands All Other Systems Reviewed And Are Negative: Yes Physical Exam - Summary Physical Exam Summary: Constitutional: Obese, Alert. (-) Distressed Skin: Warm, Dry HENT: Normocephalic; Atraumatic Eyes: Conjunctiva normal Neck: Musculoskeletal ROM normal neck. (-) JVD, (-) Stridor, (-) Tracheal deviation Cardio: Rhythm regular, rate normal, Heart sounds normal; Intact distal pulses; The pedal pulses are 2+ and symmetric. Radial pulses are 2+ and symmetric. (-) Murmur Pulmonary/Chest wall: Effort normal. (-) Respiratory distress, (-) Wheezes, (-) Rales Abd: Soft, (-) tenderness, (-) Distension, (-) Guarding, (-) Rebound Musculoskeletal: (-) Edema, no palpable lumps in arms or axilla Lymph: (-) Cervical adenopathy Neuro: Alert, Oriented x3 Psych: Mood and affect Normal Triage Information Reviewed: Yes Vital Signs On Initial Exam: Initial Vitals Temp Pulse Resp BP Pulse Ox 97.1 F 63 18 129/83 96 11/20/18 10:17 11/20/18 10:17 11/20/18 10:17 11/20/18 10:17 11/20/18 10:17 Vital Signs Reviewed: Yes Diagnostics - Vital Signs Vital Signs Temp Pulse Resp BP Pulse Ox 11/20/18 10:17 97.1 F 63 18 129/83 96 - Laboratory Lab Results: Lab Results 11/20/18 11/20/18 11/20/18 Range/Units 10:26 10:26 10:26 WBC 7.7 (3.5-10.8) 10^3/uL RBC 4.46 (3.70-4.87) 10^6 /uL Hgb 13.5 (12.0-16.0) g/dL Hct 40 (35-47) % MCV 89 (80-97) fL MCH 30 (27-31) pg MCHC 34 (31-36) g/dL RDW 13 (10-15) % Plt Count 236 (150-450) 10^3/uL MPV 8.1 (7.4-10.4) fL Neut % (Auto) 67.7 % Lymph % (Auto) 22.7 % Barry % (Auto) 7.6 % Eos % (Auto) 0.9 % Baso % (Auto) 1.1 % Absolute Neuts (auto) 5.2 (1.5-7.7) 10^3/ul Absolute Lymphs (auto) 1.7 (1.0-4.8) 10^3/ul Absolute Monos (auto) 0.6 (0-0.8) 10^3/ul Absolute Eos (auto) 0.1 (0-0.6) 10^3/ul Absolute Basos (auto) 0.1 (0-0.2) 10^3/ul Absolute Nucleated RBC 0.0 10^3/ul Nucleated RBC % 0.0 Sodium 136 (135-145) mmol/L Potassium 3.6 (3.5-5.0) mmol/L Chloride 101 (101-111) mmol/L Carbon Dioxide 26 (22-32) mmol/L Anion Gap 9 (2-11) mmol/L BUN 23 (6-24) mg/dL Creatinine 0.86 (0.51-0.95) mg/dL Est GFR ( Amer) 83.8 (>60) Est GFR (Non-Af Amer) 69.3 (>60) BUN/Creatinine Ratio 26.7 H (8-20) Glucose 112 H (70-100) mg/dL Lactic Acid 0.9 (0.5-2.0) mmol/L Calcium 11.4 H (8.6-10.3) mg/dL Total Bilirubin 0.30 (0.2-1.0) mg/dL AST 12 L (13-39) U/L ALT 16 (7-52) U/L Alkaline Phosphatase 92 (34-104) U/L Troponin I Pending Total Protein 7.3 (6.4-8.9) g/dL Albumin 4.2 (3.2-5.2) g/dL Globulin 3.1 (2-4) g/dL Albumin/Globulin Ratio 1.4 (1-3) Result Diagrams: 11/20/18 10:26 11/20/18 10:26 Lab Statement: Any lab studies that have been ordered have been reviewed, and results considered in the medical decision making process. - Radiology CHEST X-RAY Radiology Interpretation Completed By: Radiologist Summary of Radiographic Findings: No evidence for acute intrathoracic disease. THESE FINDINGS WERE REVIEWED BY DR. BHATT. - CT CTA CHEST/PELVIS/ABDOMEN CT Interpretation Completed By: Radiologist Summary of CT Findings: CHEST IMPRESSION: #. Negative for pulmonary embolism. #. No acute thoracic pathologic process evident. ABDOMEN PELVIS IMPRESSION: # . No conspicuous urolithiasis or hydronephrosis. #. No acute abdominal pelvic pathologic process evident. THIS REPORT WAS REVIEWED BY DR. BHATT. - EKG 1020 Cardiac Rate: NL - 64 BPM EKG Rhythm: Sinus Rhythm Summary of EKG Findings: sinus rhythm , 64 BPM, no STEMI Re-Evaluation - Re-Evaluation First Re-Eval Re-Evaluation Time: 13:42 Change: Improved Comment: pt says she is CP free at this time; admission discussed with patient, patient is agreeable. Chest Pain Course/Dx - Course Course Of Treatment: This patient is a 53 year old F presenting to [facility] with daughter via EMS with a chief complaint of substernal CP that is on and off since a couple of days ago. Pt called EMS because CP and lower back pain worsened around 900 today. Pt called daughter at 900 about the pain. Pt states that substernal CP, which radiates to arms, neck and jaw. The pt rates the pain currently at 2-3/10 in severity. Pt did not receive NTG or aspirin from EMS despite CP. Also c/o bilat flank pain, sore throat, states urine has a foul odor and is dark and notes bilat hand tingling that is worse on the left hand/ arm. Pt notes difficulty breathing and dyspnea, sore throat, fever, clamminess/ diaphoresis, dizziness, and lightheadedness. She has borderline diabetes, HTN, HLD, and is a non-smoker or drinker. Pt denies, chills, erythema of eyes, SOB, cough, N/V, dysuria, myalgia, edema, or rash.Pt notes that flank pain may be due to her kidney stone removal this past June. She notes she has been taking UTI medicine to facilitate urination, but has had burning urine for the past 3 days. Physical Exam findings show no palpable lumps in arms or axilla. Lab results show BUN/creatinine ratio 26.7, glucose 112, calcium 11.4, AST 12, trop 0. CHEST X-RAY IMPRESSION: No evidence for acute intrathoracic disease. EKG 1020: sinus rhythm , 64 BPM, no STEMI. CHEST IMPRESSION: #. Negative for pulmonary embolism. #. No acute thoracic pathologic process evident. ABDOMEN PELVIS IMPRESSION: #. No conspicuous urolithiasis or hydronephrosis. During ED course, patient was given Aspirin 324 mg PO ED, NTG 0.4 mg SL every 5 min PRN , and NTG 1 inch TOPICAL ED. 1345 - pt's case was discussed with Dr. Hadley. Dr. Hadley accepts the pt at this time. Patient is agreeable with being admitted to [facility]. - Diagnoses Provider Diagnoses: Chest pain Is Visit Related: No - Provider Notifications Discussed Care Of Patient With: Joyce Hadley Time Discussed With Above Provider: 13:45 Instructed by Provider To: Other - pt's case was discussed with Dr. Hadley. Dr. Hadley accepts the pt at this time Discharge - Sign-Out/Discharge Documenting (check all that apply): Patient Departure - admitted Patient Received Moderate/Deep Sedation with Procedure: No - Discharge Plan Condition: Good Disposition: ADMITTED TO [facility] Referrals: Franck Jones MD [Primary Care Provider] - - Attestation Statements Document Initiated by Robertibjose manuel: Yes Documenting Scribe: BLADIMIR KAMARA Provider For Whom Scribe is Documenting (Include Credential): HUBER BHATT MD Scribe Attestation: I, BLADIMIR KAMARA, scribed for HUBER BHATT MD on 11/20/18 at 1417. Status of Scribe Document: Ready
[2018-11-20 12:10] LABS: Urine Appearance Cloudy; Urine Bilirubin Negative (Negative); Urine Blood Negative (Negative); Urine Color Yellow; Urine Glucose Negative (Negative); Urine Ketones Negative (Negative); Urine Nitrite Negative (Negative); Urine Protein Negative (Negative); Urine Specific Gravity 1.015 (1.010-1.030); Urine Urobilinogen Negative (Negative)
[2018-11-20] MEDS ORDERED: NS 0.9% 1000 ML** 1,000 ML IV ONE (12:17)
[2018-11-20] MEDS ORDERED: Nitro 2% OINT* (Nitroglycerin) 1 INCH/PAK PAK TOPICAL ONE (12:18)
[2018-11-20 12:21] LABS: TSH (Thyroid Stimulating Horm) 0.6 mcIU/mL (0.34-5.60)
[2018-11-20 12:23] LABS: Free T4 0.96 ng/dL (0.61-1.12)
[2018-11-20] MEDS ORDERED: Albuterol 2.5 MG/3 ML NEB.SOL* (0.083%) INH PRN (15:52)
[2018-11-20] MEDS ORDERED: Bisacodyl EC TAB* 5 MG PO PRN (15:52)
[2018-11-20] MEDS ORDERED: Cetirizine* 10 MG TAB PO PRN (15:52)
[2018-11-20] MEDS ORDERED: Enoxaparin(*) 40 MG/0.4 ML SYR SUBCUT SCH (16:00)
--- NOTE | 2018-11-20 18:58 | HP ---
CC: Dr. Franck Jones; Fabi Bowie NP * HISTORY AND PHYSICAL: DATE OF ADMISSION: 11/20/18 PRIMARY CARE PROVIDER: Dr. Franck Jones and Fabi Bowie HEALTHCARE PROXY: Charo Merritt (daughter), phone number [phone] CODE STATUS: Full. CHIEF COMPLAINT: Upper left-sided chest pain associated with tingling in hands for 3 days. HISTORY OF PRESENT ILLNESS: Ms. Kessler is a 53-year-old woman with a history of COPD; morbid obesity; chronic back pain; thyroid cancer status post resection ; cervical cancer status post resection, chemotherapy, radiation; kidney stones with prior nephrostomy tube, who is presenting to the emergency room with 3 days of upper left-sided sharp chest pain associated with tingling in both hands. The chest pain is not exertional. She reports that she was in her usual state of somewhat poor health when 3 days ago she began experiencing this chest pain which is near her left shoulder on the anterior aspect of her chest. She describes it sharp in quality and when it comes on she also experiences a tingling in both of her hands. She denies associated shortness of breath or diaphoresis. The chest pain is not pleuritic or positional. She does report that she is dizzy upon walking for these past 3 days. She reports that she is frequently dizzy on walking chronically, although usually it is a mild symptom, but since the chest pain and hand tingling had started the dizziness with walking has become progressive. She also reports that she thinks she is having a urinary tract infection which concerns her because she had a history of kidney stones with multiple complications such as obstruction for which she had a nephrostomy tube on her right side and she reports that the removal of this tube was "complicated" but she is not able to say if she had an infection or any other mechanical complication. She denies abdominal pain, nausea, vomiting , constipation, diarrhea, cough, fevers, chills, or recent weight loss. She denies radiation of this chest pain. She states that the only that thing that has improved the pain was the nitroglycerin that she received in the emergency room. She does think that she has had worsening flank pain on top of her baseline chronic flank pain as well as worsening lower back pain which is also acute on chronic. She also reports urinary frequency, cloudiness, and foul odor to her urine. 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 In the emergency room, she received aspirin 324, nitroglycerin and had resolution of her symptoms and was asked to be admitted to Medicine for further cardiac risk stratification. PAST MEDICAL HISTORY: 1. Hypertension. 2. COPD. 3. Anxiety and depression. 4. Nephrolithiasis, complicated by obstruction with history of nephrostomy tube on right removed June 2018. 5. Back injury at work complicated by chronic lower back pain status post rods in her spine. 6. Thyroid cancer status post resection. 7. Cervical cancer status post hysterectomy, chemotherapy and radiation. 8. Chronic chest pain with history of stress test, unknown results. HOME MEDICATIONS: 1. Furosemide 20 mg daily. 2. Spironolactone/HCTZ 25-25 mg daily. 3. Potassium chloride 10 mEq daily. 4. Alprazolam 0.25 to 0.5 mg 3 times a day as needed for anxiety. 5. Citalopram 40 mg nightly. 6. Diltiazem 120 mg twice a day. 7. [place] 5/325 every 6 hours as needed for pain. 8. Tramadol 50 mg every 6 hours as needed for pain. 9. Advair 1 puff daily. 10. Levothyroxine 137 mcg daily. 11. Albuterol and ipratropium nebulizer solution as needed. 12. Levocetirizine 5 mg daily as needed for allergy. 13. Loratadine 10 mg daily. 14. Montelukast 10 mg daily. 15. Mometasone topical twice a day. 16. Fluticasone nasal spray daily. 17. Bisacodyl 5/10 mg daily as needed for constipation. ALLERGIES: PENICILLIN, MORPHINE, ERYTHROMYCIN, AUGMENTIN, and CIPROFLOXACIN caused difficulty breathing. METOCLOPRAMIDE caused psychosis. FAMILY HISTORY: Her mother has cancer of unknown origin with diabetes and pulmonary embolism. Her father had throat cancer and was a smoker. She reports her mother also had a valve replacement and her mother, brothers and sisters had heart disease. 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 She quit tobacco use in 2010. She started smoking at approximately age 14 and previously smoked 2 to 3 packs a day with total pack year approximately 60. She denies alcohol or drugs. She lives with her daughter. PHYSICAL EXAMINATION GENERAL: She is a comfortable appearing, obese woman in no acute distress. She is alert and interactive. VITAL SIGNS: The patient afebrile, heart rate in 60s, blood pressure 126/69, respiratory rate 17, oxygen saturation 95% on room air. HEENT: OP clear. Moist mucous membranes. NECK: Unable to appreciate JVD given habitus. LUNGS: Clear to auscultation bilaterally. HEART: Regular rate and rhythm. No murmurs, gallops, or rubs. L-sided chest pain reproducible on exam. ABDOMEN: Soft, mild tenderness to palpation in suprapubic region; otherwise, nontender, no guarding or rebound. Normoactive bowel sounds. BACK: Positive for mild CVA punch tenderness bilaterally. EXTREMITIES: Warm and well perfused. No pitting edema. DIAGNOSTIC STUDIES/LAB DATA: Labs reviewed and significant for a normal CBC. Normal LFTs. BMP remarkable for elevated calcium which the patient has a history of. TSH 0.6. Urinalysis completely normal. Chest x-ray, no evidence for acute cardiopulmonary disease. CT of the chest, abdomen, and pelvis without urolithiasis or hydronephrosis and without acute abdominal pelvic pathologic process evident, also negative for pulmonary embolism and without acute thoracic pathologic process evident. EKG, normal sinus rhythm 64, no ischemic changes. ASSESSMENT AND PLAN: Ms. Kessler is a 53-year-old woman with multiple medical problems as listed above who is presenting with atypical left-sided chest pain associated with bilateral tingling in her fingers. Her initial troponins have been negative and her EKG is without ischemic changes. Full chest, abdomen, pelvis CT scan is unremarkable for acute changes related to the patient's history of cancer or obstructing kidney stones. Also her urinalysis is without signs of infection or blood. 1. Chest pain. The patient's chest pain is atypical in nature. Acute coronary syndrome will be fully ruled out with the third troponin. We will monitor the patient overnight on telemetry and we will attempt to obtain outside stress test records before obtaining another study while admitted. CT negative for pulmonary embolism or other acute process. Possible that this pain is related to her history of anxiety, and it is reproducible on exam. We will check a transthoracic echo as we have no recent one on file here. Given dizziness, we will obtain a set of orthostatics as the patient is on significant diuretic therapy. 2. Foul smelling urine and dysuria. UA has no evidence for infection or blood or any abnormalities at all. Possibly psychogenic in nature given the patient' s history of urologic issue and ongoing anxiety regarding recurrence of stones and infection. 3. Hypertension with possible history of diastolic heart failure. Continue home diltiazem 120 mg twice a day, furosemide 20 mg daily and spironolactone/ hydrochlorothiazide 25/25 daily. 4. Chronic back pain. Continue the patient's home tramadol 50 mg every 6 hours as needed. Hydrocodone/acetaminophen 5/325 every 6 hours as needed for pain and Tylenol as needed for pain. Her narcotics and benzodiazepines have been confirmed on I-STOP. 5. Anxiety. Continue home alprazolam 0.5 mg up to 3 times a day as needed for anxiety. Continue home SSRI, citalopram 40 mg nightly. 6. Asthma. Continue home inhalers with nebulizers as needed. 7. History of thyroid cancer. Continue levothyroxine 137 mcg daily. 8. Allergies. Continue home montelukast, levocetirizine and eye drops. 9. DVT prophylaxis. Initiate Lovenox subcutaneous daily. 10. Code status. The patient is full code. TIME SPENT: Approximately 60 minutes was spent on admission of this patient, more than half of which was spent at bedside for interview and exam. [id number]/[facility] #: [id number] MTDD
[2018-11-20] MEDS: traMADol TAB* 50 MG PO PRN (19:15)
[2018-11-20] MEDS: HYDROcodone/ACETAMIN 5-325 MG* 1 TAB PO PRN (19:15)
[2018-11-20] MEDS: Spironolactone/HCTZ 25-25 MG* 1 TAB PO SCH (20:23)
[2018-11-20] MEDS: Diltiazem CD CAP* 120 MG PO SCH (20:23)
[2018-11-20] MEDS ORDERED: Montelukast Sodium TAB* 10 MG PO SCH (21:00)
[2018-11-20] MEDS ORDERED: Citalopram TAB* 40 MG PO SCH (21:00)
[2018-11-20] MEDS: ALPRAZolam TAB* 0.5 MG PO PRN (22:00)
[2018-11-21] MEDS: traMADol TAB* 50 MG PO PRN (04:57)
[2018-11-21] MEDS: HYDROcodone/ACETAMIN 5-325 MG* 1 TAB PO PRN ×2 (04:57→12:35)
[2018-11-21] MEDS ORDERED: Levothyroxine TAB* 137 MCG TAB PO SCH (06:00)
[2018-11-21] MEDS: Diltiazem CD CAP* 120 MG PO SCH (08:38)
[2018-11-21] MEDS: Spironolactone/HCTZ 25-25 MG* 1 TAB PO SCH (08:39)
[2018-11-21] MEDS: ALPRAZolam TAB* 0.5 MG PO PRN (08:46)
[2018-11-21] MEDS ORDERED: Olopatadine 0.1% OPHTH (NF) 1 DROP BTL BOTH EYES SCH (09:00)
[2018-11-21] MEDS ORDERED: Furosemide TAB* 20 MG PO SCH (09:00)
[2018-11-21] MEDS ORDERED: Potassium Chlor TAB* 10 MEQ TAB.ER PO SCH (09:00)
[2018-11-21] MEDS ORDERED: Mometasone/Formoter 200/5 MDI INH SCH (09:00)
[2018-11-21] MEDS ORDERED: Fluticasone NASAL SPRAY 50MCG* 16 gm SPRAY BTL BOTH NARES SCH (11:00)
[2018-11-21 12:59] VITALS: BP 131/59
--- NOTE | 2018-11-24 21:51 | DS ---
CC: Dr. Franck Joens * DISCHARGE SUMMARY: DATE OF ADMISSION: 11/20/18 DATE OF DISCHARGE: 11/21/18 PRIMARY CARE PHYSICIAN: Dr. Franck Jones. PRIMARY DIAGNOSIS: Chest pain and hand tingling of unknown etiology. SECONDARY DIAGNOSES: 1. Anxiety and depression. 2. Hypertension. 3. History of nephrolithiasis. 4. Chronic pain. 5. Thyroid cancer, status post resection. 6. Cervical cancer, status post hysterectomy, chemotherapy and radiation. DISCHARGE MEDICATIONS: 1. Doxycycline 200 mg daily for 1 day. 2. Citalopram 40 mg daily. 3. Alprazolam 0.5 mg 3 times a day as needed for anxiety. 4. Potassium chloride 10 mEq p.o. daily. 5. Furosemide 20 mg daily. 6. Spironolactone/hydrochlorothiazide 25/25 mg twice a day. 7. Diltiazem 120 mg twice a day. 8. [place] 1 tab every 6 hours as needed for pain. 9. Fluticasone nasal spray daily. 10. Mometasone 0.1% topical twice a day. 11. Diclofenac gel topical up to 4 times a day as needed for pain. 12. Montelukast 10 mg daily. 13. Tramadol 50 mg every 6 hours as needed for pain. 14. Advair 1 puff daily. 15. Levothyroxine 137 mcg daily. 16. Loratadine 10 mg daily. 17. Patanol eye drops daily. 18. Levocetirizine 5 mg daily as needed. HISTORY OF PRESENT ILLNESS: Ms. Kessler is a 53-year-old woman with a history of COPD; morbid obesity; chronic back pain; anxiety; depression; chronic pain; thyroid cancer, status post resection; cervical cancer, status post resection, chemotherapy, radiation; kidney stones with history of nephrostomy tubes since removed, who is presenting to the emergency room with 3 days of upper left- sided sharp chest pain associated with tingling in both of her hands. The chest pain is nonexertional. She reports that she was in her usual state of somewhat poor health when 3 days prior to admission she began experiencing this chest pain, near her left shoulder on the anterior aspect of her chest. She describes it as sharp in quality and when it comes on she also experiences a tingling in both of her hands. She denies associated shortness of breath or diaphoresis. The chest pain is not pleuritic or positional. She does report that she is dizzy upon walking for these past 3 days, although she reports she is frequently dizzy on walking chronically. Since the chest pain started, this dizziness has become progressive. She also reports that she thinks she is having a urinary tract infection which concerns her because she had a history of kidney stones with multiple complications such as obstruction, for which she had a nephrostomy tube on her right side, and she reports that the removal of this tube was "complicated" but she is not able to say if she had an infection or any other mechanical complication. She denies abdominal pain, nausea, vomiting, constipation, diarrhea, cough, fevers, chills, or night sweats. She denies radiation of this chest pain. She states that the only thing that has improved the pain was the nitroglycerin that she received in the emergency room. She does think that she has had worsening flank pain on top of her baseline chronic flank pain, as well as worsening lower back pain which is also acute on chronic. She also reports urinary frequency, cloudiness, and foul odor to her urine. The patient does report she had a nuclear stress test 3 months ago with her property management intern and she states she does not know the results but was told to follow up with her primary care physician. HOSPITAL COURSE: In the emergency room, the patient received aspirin 324 mg, nitroglycerin and had complete resolution of her symptoms and was asked to be admitted to Medicine for further cardiac risk stratification. While admitted to the hospital, the patient did not have recurrence of her chest pain. Overnight, she thinks she had a tick bite to her left breast and states that she saw the tick, but did not save it or show nursing staff. She does have a history of chronic fungal infections under her breast, but on exam it did seem that she had a small amount of focal skin breakdown without induration, warmth, or discharge. As the patient had a CT with contrast of her chest, abdomen and pelvis, which showed no acute pathology, 3 negative troponins, and normal telemetry and EKGs, the patient was ruled out for severe causes of etiology of her chest pain. Her recent outpatient stress test records were obtained. It was noted that she had a chemical nuclear stress test on 10/09/18 and 10/10/18 that had no evidence of ischemia or evidence of infarct, with normal left ventricular function. The study was deemed low risk. Given her normal workup during admission including a normal UA and a history of a recent normal stress test, the patient was deemed safe to return home with close followup with her PCP and property management intern. On day of discharge, the patient reports chronic back pain, dysuria, chronic fatigue, but otherwise a 10-point review of systems was performed and was negative for acute symptoms. PHYSICAL EXAM: Temperature 98.2, heart rate 66, blood pressure 131/59, respiratory rate 16, oxygen saturation 97% on room air. In general, comfortable appearing obese woman, in no acute distress. Alert and interactive. HEENT: OP clear. Moist mucous membranes. Neck: Unable to appreciate JVD given habitus. Lungs: Clear to auscultation bilaterally. Heart : Regular rate and rhythm. No murmurs, gallops, or rubs. Abdomen: Soft, nontender, nondistended. Extremities: Warm and well perfused. DP 2+ bilaterally. No pitting edema. PERTINENT STUDIES AND LABS: Labs reviewed and significant for normal CBC, BMP, and UA except for calcium of 11.4. A1c 5.9%. Vitamin B12 of 353. TSH 0.60. Chest, abdomen and pelvis CTA, negative for pulmonary embolism, no acute thoracic pathologic process evident. No conspicuous urolithiasis or hydronephrosis. No acute abdominopelvic pathologic process evident. DISCHARGE PLAN: The patient was asked to follow up closely with her primary care physician for ongoing monitoring of her chronic issues and also to repeat her calcium level. She is also to follow up with her property management intern for ongoing workup of her chronic chest pain. She was given 1 dose of prophylactic doxycycline in case of tick bite, which she reports occurred within the last 24 hours. She is to resume a healthy diet, low in processed foods, and activity as tolerated. Her other home medications have remained unchanged. She was educated on return precautions. DISPOSITION: Home. CONDITION: Good. TIME SPENT: Approximately 60 minutes was spent on discharge of this patient, more than half of which was spent with care and coordination at bedside for interview and exam. [id number]/[facility] #: [id number] DOMINIQUE
== END 2018-11-21 13:50 | disposition home or self-care (01) ==
LOC: ED 10:03 → MEDTELE 15:49
PROVIDERS: ADMIT Internal Medicine; ATTEND Internal Medicine
DX: R07.9 Chest pain, unspecified (principal); R20.2 Paresthesia of skin; R30.0 Dysuria; I10 Essential (primary) hypertension; J44.9 Chronic obstructive pulmonary disease, unspecified; F41.9 Anxiety disorder, unspecified; M54.5 Low back pain; Z98.1 Arthrodesis status; Z85.850 Personal history of malignant neoplasm of thyroid; Z85.41 Personal history of malignant neoplasm of cervix uteri; Z90.710 Acquired absence of both cervix and uterus; Z88.0 Allergy status to penicillin; K21.9 Gastro-esophageal reflux disease without esophagitis; Z87.442 Personal history of urinary calculi; Z87.891 Personal history of nicotine dependence; Z79.899 Other long term (current) drug therapy
CPT/HCPCS: 36415; 71045; 71275; 74177; 80053; 81003; 82607; 83036; 83605; 84439; 84443; 84484; 85025; 93005; 94640; 96372; 99283; A9270-GY; G0378; G8978-GP-CK; G8979-GP-CI; J1650; Q9967

== ENCOUNTER 2019-01-22 14:24 | Emergency (ER) | payer MEDICARE, MEDICAID ==
--- OUTSIDE RECORDS SUMMARY | 2019-01-22 14:40 | XMS REPORT | Continuity of Care Document ---
:1965 External Reference #:[id number] Author Name Funmi Mcqueen Care Team Providers Name Role Phone Franck Jones MD Primary Care Physician Unavailable Payers Date Identification Numbers Payment Provider Subscriber Effective: 2001 Policy Number: [id number] Medicare Josefina Arshad PayID: [id number] [address] [place] [address] Effective: 2012 Policy Number: [id number] Medicaid Josefina Arshad PayID: [id number] [address] [place] [address] Onset: 2010 Policy Number: [id number] [facility] Josefina Arshad PayID: [id number] [employer] [address] [place] [address] Problems Active Problems Provider Date Neck pain Jose Bowling M.D. Onset: 09/06/2016 Inadequate sleep hygiene Tiki Keane DNP RN, PATIENT SERVICES COORDINATOR-BC Onset: 03/19/2017 Hypersomnia Tiki Keane DNP, RN, PATIENT SERVICES COORDINATOR-BC Onset: 03/19/2017 Sleep apnea Tiki Keane DNP, RN, PATIENT SERVICES COORDINATOR-BC Onset: 03/19/2017 Obstructive sleep apnea syndrome Tiki Keane DNP, RN, PATIENT SERVICES COORDINATOR-BC Onset: 05/2017 Localized, primary osteoarthritis Sarika Mijares M.D. Onset: 09/02/2017 Family History Date Family Member(s) Observation Comments General Cancer General Heart Disease General Hypertension General Cerebrovascular Accident (CVA) General Diabetes General aneurysms Father due to Passed in 1990 () Father Throat Cancer Mother due to Passed in 1992 () Mother Heart Disease Mother Breast Cancer Mother Lung Cancer Siblings Several 3 sisters and 4 brothers, cancer hx for siblings. Two sisters had heart attack. Social History Type Date Description Comments Sex Unknown Marital Status Single Lives With daughter/grandaughter Occupation Disabled Tobacco Use Start: Unknown End: Former Cigarette Smoker Unknown Smoking Status Reviewed: 01/02/19 Former Cigarette Smoker ETOH Use Denies alcohol use Recreational Drug Use Denies Drug Use Tobacco Use Start: Unknown End: Patient is a former Quit 2011, was Unknown smoker smoking 1 1/2 packs for 25 years Exercise Type/Frequency Exercises sporadically Allergies, Adverse Reactions, Alerts Active Allergies Reaction Severity Comments Date Reglan 02/11/2012 Erythromycin 09/09/2015 Cipro 09/09/2015 Augmentin 09/09/2015 Morphine 09/09/2015 Penicillins 03/19/2017 Medications Active Medications SIG Qnty Indications Ordering Date Provider Citalopram Hydrobromide 1 by mouth every Unknown 01/01/2019 40mg day Tablets Diltiazem HCL ER 1 by mouth twice Unknown 01/01/2019 180mg Caps daily ER 24HR Furosemide 1 by mouth every Unknown 01/01/2019 20mg Tablets day Klor-Con M10 1 by mouth every Unknown 01/01/2019 10Meq Tablets ER day Nitroglycerin 1 sl q5mins x3 as Unknown 01/01/2019 0.4mg Tablets needed for chest Sub pain Spironolactone/Hydrochlo 1 by mouth every Unknown 01/01/2019 rothiazide day 25-25mg Tablets Ipratropium [place] 1 vial in Unknown 0.02% nebulizer every Solution 4-6 hours as needed. use with albuterol. Dulcolax 1-2 by mouth Unknown 5mg Tablets DR daily as needed Icy Hot Advanced Relief Apply 1 daily, 1 Unknown Pain Relief Patch more at bedtime 7.5% as needed Patches Lidocaine Apply 1 per day Unknown 5% Patches Allergy Injections 1x per week Unknown Pazeo 1 drop each day Jose 0.7% Solution every morning, 1 MD Minesh drop at night as needed Levocetirizine 1 by mouth per Franck Jones MD Dihydrochloride day 5mg Tablets Fluticasone Propionate 2 sprays each Unknown nostril qd. 50mcg/Act Suspension Mometasone Furoate use on scalp Unknown 0.1% daily for 2 week Solution on and one week off as needed Lorazepam 1 tablet twice a Unknown 0.5mg Tablets day plus two at night (4 per day total) for anxiety Hydrocodone-Acetaminophe 1 every 6 hours Mariely Hatch, n as needed P.A. 5-325mg Tablets Diclofenac Sodium apply 3 times Unknown Cream over painfull area 3 times a day as needed Albuterol Sulfate 1 vial via Unknown (2.5mg/3ML) nebulizer 4 times 0.083% Nebulizer daily as needed Flonase Allergy Relief spray 1 spray in Unknown each nostril 50mcg/Act Suspension twice daily Claritin once daily Unknown 10mg Tablets Singulair 1 by mouth every Unknown 10mg Tablets day Tramadol HCL 1-2 tablets every Unknown 50mg Tablets 6 hours as needed Proair HFA Franck Jones MD 108(90Base) mcg/Act Aerosol Advair Diskus Franck Jones MD 500-50mcg/Dose Aerosol Levothyroxine Sodium 1 by mouth daily Franck Jones MD 137mcg Tablets History Medications Diazepam 1 tab po q 6 hrs 20tabs Deejay Almazan, 03/28/2012 - 5mg Tablets prn M.D. 08/16/2015 Dilaudid 1-2 po qid prn 40tabs Deejay Almazan, 03/28/2012 - 4mg Tablets back pain M.D. 08/16/2015 Neurontin one po tid or as 90tabs Deejay Almazan, 03/19/2012 - 600mg Tablets directed M.D. 08/16/2015 Tramadol HCL 1-2 po qid prn 60tabs Deejay Almazan, 01/23/2012 - 50mg Tablets M.D. 09/09/2015 Alprazolam Franck Jones MD - 0.25mg Tablets 03/18/2017 Naproxen Franck Jones MD - 375mg Tablets 09/01/2017 Oxycodone-Acetaminophen take 1 to 2 Unknown - tablets by mouth Unknown 5-325mg Tablets every 6 to 8 hours as needed pain Cranberry 2 by mouth daily Unknown - 400mg Tablets 03/18/2017 Levocetirizine 1 by mouth every Unknown - Dihydrochloride day 10/15/2017 5mg Tablets Pazeo 1 drop both eyes Unknown - 0.7% Solution daily 10/15/2017 Allergy 1x per week Unknown - Injection 10/15/2017 Alprazolam Unknown - 10/16/2017 Fluid Pill Unknown - 10/15/2017 Omeprazole 1 by mouth daily Unknown - 40mg 01/01/2019 Triamterene/Hydrochlorot 1 by mouth every Unknown - hiazide day 09/30/2018 37.5-25mg Capsules Xyzal Allergy 24HR 1 by mouth every Unknown - 5mg day 11/03/2017 Tablets Atenolol 1 by mouth daily Franck Jones MD - 25mg Tablets 01/01/2019 Medications Administered in Office Medication SIG Qnty Indications Ordering Provider Date Inj, Regadenoson, 0.1 MG Nadeem Folwer M.D. 10/09/2018 Injection Technetium TC 99M Nadeem Fowler M.D. 10/09/2018 Tetrofosmin, Per Unit Dose Up To 40 Millicuries Injection Technetium TC 99M Nadeem Fowler M.D. 10/09/2018 Tetrofosmin, Per Unit Dose Up To 40 Millicuries Injection Technetium TC 99M [facility] Nuclear Schedule 10/24/2017 Tetrofosmin, Per Unit Dose Up To 40 Millicuries Injection Inj, Regadenoson, 0.1 MG Meir Clark, DO [facility] 10/23/2017 Injection Technetium TC 99M Meir Clark, DO [facility] 10/23/2017 Tetrofosmin, Per Unit Dose Up To 40 Millicuries Injection Depomedrol 40MG Sarika Mijares M.D. 09/02/2017 Injection Vital Signs Date Vital Result Comment 01/02/2019 9:27am Height 60.25 inches 5'0.25" Weight 248.00 lb with shoes BP Systolic 136 mmHg ure lg cuff sitting BP Systolic Sitting 138 mmHg ule lg cuff BP Diastolic Sitting 80 mmHg ule lg cuff BP Systolic Standing 134 mmHg ule lg cuff BP Diastolic Standing 80 mmHg ule lg cuff BMI (Body Mass Index) 48.0 kg/m2 Ejection Fraction 55-60% Echo 05/24/10 11/04/2017 9:32am Height 60.25 inches 5'0.25" Weight 243.50 lb Heart Rate 58 /min BP Systolic Sitting 118 mmHg Lue large cuff BP Diastolic Sitting 84 mmHg Lue large cuff Respiratory Rate 14 /min O2 % BldC Oximetry 97 % On Ra BMI (Body Mass Index) 47.2 kg/m2 09/30/2017 1:17pm Height 60.25 inches 5'0.25" Heart Rate 248 /min BP Systolic 152 mmHg BP Diastolic 80 mmHg Respiratory Rate 12 /min Body Temperature 97.9 F Pain Level 3 09/02/2017 9:44am Height 60.25 inches 5'0.25" Weight 248.00 lb Heart Rate 76 /min BP Systolic 126 mmHg BP Diastolic 84 mmHg BMI (Body Mass Index) 48.0 kg/m2 05/28/2017 9:17am Height 60 inches 5'0" Weight 241.25 lb with shoes Heart Rate 68 /min BP Systolic Sitting 122 mmHg Lue large cuff BP Diastolic Sitting 92 mmHg Lue large cuff Respiratory Rate 16 /min O2 % BldC Oximetry 98 % On Ra BMI (Body Mass Index) 47.1 kg/m2 03/19/2017 9:50am Height 60 inches 5'0" Weight 240.00 lb Heart Rate 60 /min BP Systolic Sitting 120 mmHg BP Diastolic Sitting 82 mmHg Respiratory Rate 14 /min O2 % BldC Oximetry 99 % BMI (Body Mass Index) 46.9 kg/m2 Neck Circumference in inches 16 09/06/2016 9:05am Height 60 inches 5'0" Weight 249.00 lb Heart Rate 82 /min BP Systolic Sitting 130 mmHg BP Diastolic Sitting 80 mmHg Pain Level 7 BMI (Body Mass Index) 48.6 kg/m2 09/03/2016 1:24pm Heart Rate 74 /min Respiratory Rate 16 /min Body Temperature 97.8 F 08/27/2016 1:48pm Height 60 inches 5'0" Weight 242.00 lb Heart Rate 76 /min BP Systolic 124 mmHg BP Diastolic 82 mmHg Respiratory Rate 18 /min Body Temperature 97.7 F BMI (Body Mass Index) 47.3 kg/m2 09/09/2015 2:08pm Height 60 inches 5'0" Weight 254.00 lb Heart Rate 64 /min BP Systolic Sitting 122 mmHg BP Diastolic Sitting 70 mmHg Respiratory Rate 16 /min BMI (Body Mass Index) 49.6 kg/m2 11/07/2011 2:22pm Height 60 inches 5'0" Weight 180.00 lb Heart Rate 77 /min BP Systolic 114 mmHg BP Diastolic 78 mmHg BMI (Body Mass Index) 35.1 kg/m2 Results Test Date Facility Test Result H/L Range Note Creatinine 08/31/2016 [facility] Creatinine 0.82 mg/dL N 0.51- 0.95 [address] [place] [address] [phone] Egfr Non- 74.1 N >60 Egfr 95.3 N >60 1 Laboratory test 08/31/2016 [facility] Blood Urea 21 mg/dL N 6- 24 finding 101 [facility] [place] [place] [address] [phone] Surgical 02/12/2012 [facility] Surgical 2 Pathology 101 [facility] Pathology ----- <[place] [address] NOTE> [phone] Basic Metabolic 02/06/2012 [facility] Sodium 139 mmol/L 135- 145 3 Panel [address] [place] [address] [phone] Potassium 4.0 mmol/L 3.5-5.0 Chloride 105 mmol/L 101-111 Co2 (Carbon Dioxide) 28.0 mmol/L 22-32 Anion Gap 6.0 mmol/L 2-11 4 Glucose 79 mg/dL 70-100 BUN 12 mg/dL 6-24 Creatinine 0.7 mg/dL 0.50-1.40 One Over Creatinine 1.42 BUN/Creatinine Ratio 17.1 8-20 Calcium 10.9 mg/dL High 8.1-9.9 eGFR Non- 90.5 > 60 eGFR 116.4 > 60 5 Type And Screen 02/06/2012 [facility] Patient Blood A POSITIVE (Pre-Adm) [address] [place] [address] [phone] Antibody Screen NEGATIVE Specimen Discard Date 02/20/12 6 Laboratory test 02/06/2012 [facility] PTT (Aptt) 27.5 SEC 25.1-38.[address] [place] [address] [phone] Protime 02/06/2012 [facility] Inr 0.85 Low 0.88-1.[address] [place] [address] [phone] Protime 10.1 SEC Low 10.3-13.5 8 CBC Auto Diff 02/06/2012 [facility] White Blood 6.0 CUMM 4.8- 10.[address] [place] [address] [phone] Red Cell Count 4.23 CUMM 4.2-5.4 Hemoglobin 13.4 g/dL 12.0-16.0 Hematocrit 40 % 35-47 Mean Corpuscular Volume 93 um3 79-97 Mean Corpuscular Hemoglob 32 pg High 27-31 Mean Corpuscular HGB Cone 34 g/dL 32-36 Redcell Distribution WDTH 14 % 10.5-15 Platelet Count 192 CUMM 150-450 Mean Platelet Volume 9.2 um3 7.4-10.4 Gran % 54.8 % 38-83 Lymph % 33.6 % 20-45 Mononuclear % 8.3 % 1-9 Eosinophil % 2.3 % 0-6 Basophil % 1.0 % 0-2 Abs Lymphs 2.0 1.0-4.8 Abs Mononuclear 0.5 0-0.8 Absolute Neutrophil Count 3.3 1.5-7.7 Abs Eosinophils 0.1 0-0.6 Abs Basophils 0.1 0-0.2 Arthritis Panel 11/15/2011 [facility] Erythrocyte Sed 12 MM/HR 0-[address] [place] [address] [phone] Uric Acid 4.0 mg/dL 2.6-7.2 Antinuclear AB NEGATIVE Negative Rheumatoid Factor < 15 IU/mL <15 9 1 Because ethnic data is not always readily available, this report includes an eGFR for both -Americans and non- Americans. The National Kidney Disease Education Program (NKDEP) does not endorse the use of the MDRD equation for patients that are not between the ages of 18 and 70, are , have extremes of body size, muscle mass, or nutritional status, or are non- or non-. According to the National Kidney Foundation, irrespective of diagnosis, the stage of the disease is based on the level of kidney function: Stage Description GFR(mL/min/1.73 m(2)) 1 Kidney damage with normal or decreased GFR 90 2 Kidney damage with mild decrease in GFR 60-89 3 Moderate decrease in GFR 30-59 4 Severe decrease in GFR 15-29 5 Kidney failure <15 (or dialysis) 2 --- RUN DATE: 02/14/12 [facility] NMI LIVE PAGE 1 RUN TIME: 1543 Specimen Inquiry RUN USER: INTERFACE -- Name: JOSEFINA ARSHAD Status: DIS IN Re02/12/12 Age/Sex: 46/F Unit#: [id number] Location: [facility] : 67 -- Specimen: [id number] Spec Date:02/12/12 Dr: Deejay bennett MD Spec Type: SURGICAL P Received:02/13/12-1240 Copies to: SPECIMEN DISC LEFT L4-5 GROSS DESCRIPTION The specimen is received in formalin labelled Josefina Arshad, Disc Left L4-5, and consists of multiple golden-hung fibrous soft tissue fragments measuring 3.5 x 2.6 by up to 1.5 cm. Tuber Operator section, one cassette. DIAGNOSIS Intervertebral disc, L4-5, discectomy: Intervertebral disc material with myxoid degeneration. Signed Electronically by: SHER SANZ MD 02/14/12 1541 -- -- DEPARTMENT OF PATHOLOGY, [address] [place] [address] [facility] Permit #[id number] Winter Zamora M.D. Shot Hole Shooter Dir erasmo -- 3 02/11 4 Anion gap measurement may be of limited value in the presence of any alkalosis, especially in a combined acid base disorder. . 5 Because ethnic data is not always readily available, this report includes an eGFR for both -Americans and non- Americans. The National Kidney Disease Education Program (NKDEP) does not endorse the use of the MDRD equation for patients that are not between the ages of 18 and 70, are , have extremes of body size, muscle mass, or nutritional status, or are non- or non-. According to the National Kidney Foundation, irrespective of diagnosis, the stage of the disease is based on the level of kidney function: Stage Description GFR(mL/min/1.73 m(2)) 1 Kidney damage with normal or decreased GFR 90 2 Kidney damage with mild decrease in GFR 60-89 3 Moderate decrease in GFR 30-59 4 Severe decrease in GFR 15-29 5 Kidney failure <15 (or dialysis) 6 PREADMISSION TESTING SAMPLES FOR BLOOD BANK WILL BE HELD FOR 14 DAYS FROM THE DATE OF COLLECTION *IF* THE FOLLOWING CRITERIA ARE MET: 1) THE PATIENT HAS *NOT* BEEN IN THE LAST 3 MONTHS. 2) THE PATIENT HAS *NOT* BEEN TRANSFUSED IN THE LAST 3 MONTHS. PREADMISSION TESTING SAMPLES WILL *NOT* BE HELD FOR 14 DAYS FROM PATIENTS WHO IN THE LAST 3 MONTHS: 1) HAVE BEEN 2) HAVE BEEN TRANSFUSED THESE PATIENTS *MUST* BE COLLECTED WITHIN 3 DAYS OF THE SURGERY DATE. 7 Recommended INR for Patients on Oral Anticoagulants Prophylaxis 2.0 - 3.0 Treatment of thrombosis 2.0 - 3.0 Prevention of embolism 2.0 - 3.0 Prevention of embolism from prosthetic heart valves 2.5 - 3.5 8 DIAGNOSIS,TREATMENT,AND THERAPY MUST BE BASED ON THE INR VALUE ALONE. 9 Test Performed by: [place] [id number] Heavy Equipment Field Mechanic: Misael Fuentes III, M.D. Procedures Date Code Description Status 10/09/2018 13391 Stress Test Completed 10/09/2018 79245 Myocardial Perfusion Imaging Tomographic (Spect) Completed Multiple Studies 12/03/2017 82149 Holter Monitor Review (24 hr)dr review & interp only Completed 11/22/2017 46915 ECG Monitor/Recording W/Visual Superimposition Scanning Completed 11/08/2017 31312 Polysomnography Sleep Staging 4+ Parameters W/Cpap Completed 10/23/2017 21836 Stress Test Completed 10/23/2017 97495 Myocardial Perfusion Imaging Tomographic (Spect) Completed Multiple Studies 09/02/2017 12362 Inject/Drain Joint/Bursa Major W/O US Completed 03/20/2017 43523 Sleep Study Unattended,HRT Rate,Oxygen Sat,Resp Completed Effort/Airflow 05/08/2016 19407417 Mammogram Completed 09/09/2015 83855 Nerve Conduction 03-04 Studies Completed 09/09/2015 66564 Needle Electromyography Complete, Five Or More Muscles Completed Studied 02/12/2012 99466 Laminotomy W/Decomp NRV RT,One Interspace,Lumbar Completed 11/07/2011 73589 Rad Exam; Knee, Ap&L Completed 11/07/2011 13395 Xray Knee 3 Views Completed 11/07/2011 15588 Rad Exam; Knee, Ap&L Completed 11/07/2011 47106 Xray Knee 3 Views Completed 05/25/2010 80029 Selective Coronary Angioplasty Completed 05/25/2010 29992 Selective Coronary Angioplasty Completed 05/25/2010 72431 S/I/R Inj Proc Vent And Or Atrial Completed 05/25/2010 56402 S/I/R Inj Proc Vent And Or Atrial Completed 05/25/2010 20690 Coronary Angiography Completed 05/25/2010 59789 Coronary Angiography Completed 05/25/2010 68657 Left Heart Catheterization Completed 05/25/2010 09730 Left Heart Catheterization Completed 05/25/2010 36423 Color Flow Doppler/Interp & Reprt Completed 05/25/2010 30434 Pulse Wave/Continuous-Interp.RPT Completed 05/25/2010 35643 ECHO Transthorasic Realtime 2D W Doppler & Color Flow Completed Hosp 05/24/2010 44709 Inj Proc LFT Vent/LFT Atrl Angio Completed 05/24/2010 75821 ECHO Transthorasic Realtime 2D W Doppler & Color Flow Completed Hosp 05/23/2010 48697 Treadmill Interp/Report Only Completed 05/23/2010 17509 Stress Test Supervsn W/Out I/R Completed Encounters Type Date Location Provider Dx Diagnosis Office Visit 11/20/2018 [facility] Joycesindi Hadley, R07.9 Chest pain, 10:52a Assoc,pc unspecified Hospitalists R82.90 Unspecified abnormal findings in urine R30.0 Dysuria I10 Essential (primary) hypertension M54.9 Dorsalgia, unspecified F41.9 Anxiety disorder, unspecified J45.909 Unspecified asthma, uncomplicated Z85.850 Personal history of malignant neoplasm of thyroid T78.40xA Allergy, unspecified, initial encounter Office Visit 11/04/2017 Pulmonology And Tiki G47.33 Obstructive sleep 9:30a [facility] AUSTYN Keane RN, apnea (adult) [facility] LITA-BC (pediatric) G47.14 Hypersomnia due to medical condition R06.02 Shortness of breath Office Visit 09/30/2017 Orthopedic Sarika M17.12 Unilateral primary 1:15p Services Of Winter Mijares osteoarthritis, left C.M.A. knee M25.562 Pain in left knee M25.462 Effusion, left knee Office Visit 09/02/2017 Orthopedic Sarika M17.12 Unilateral primary 9:00a Services Of Winter Mijares osteoarthritis, left C.M.A. knee E66.01 Morbid (severe) obesity due to excess calories Z68.42 Body mass index (BMI) 45.0-49.9, adult M25.562 Pain in left knee M25.462 Effusion, left knee G89.4 Chronic pain syndrome Office Visit 05/28/2017 Pulmonology And Tiki G47.33 Obstructive sleep 9:45a [facility] Keane RN, apnea (adult) [facility] LITA-BC (pediatric) G47.14 Hypersomnia due to medical condition Office Visit 03/19/2017 Pulmonology And Tiki G47.30 Sleep apnea, 9:30a [facility] Keane, RN, unspecified [facility] PATIENT SERVICES COORDINATOR-BC G47.14 Hypersomnia due to medical condition Z72.821 Inadequate sleep hygiene Office Visit 09/06/2016 9:45a Neurosurgery Jose Bowlnig, M54.2 Cervicalgia Services Of Urszula Max Office Visit 09/03/2016 1:15p Surgical Carolyn Macario N63 Unspecified lump Associates Of Urszula Flores MD in breast M54.89 Other dorsalgia R13.10 Dysphagia, unspecified Office Visit 08/27/2016 2:00p Surgical Carolyn Macario N63 Unspecified lump [facility] Flores MD in breast 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 Ureter Hospitalists 788.0 Colic Renal 278.01 Obesity Morbid Office Visit 02/03/2015 11:04a [facility] Bisi Boyer, 592.1 Calculus Of Assoc,pc N.P. Ureter Hospitalists 788.0 Colic Renal 278.01 Obesity Morbid Office Visit 02/02/2015 11:03a [facility] Bisi Boyer, 592.1 Calculus Of Assoc,pc N.P. Ureter Hospitalists 788.0 Colic Renal 278.01 Obesity Morbid Office Visit 01/31/2015 11:01a [facility] Devin Siu, 592.1 Calculus Of Assoc,pc M.DCintia Ureter Hospitalists 788.0 Colic Renal 278.01 Obesity Morbid Office Visit 01/23/2012 Neurosurgery Deejay Benitez 722.10 Intervertebral Disc 2:20p Services Of Urszula Almazan M.D. Displacement Lumbar W/O Myelopathy Office Visit 11/21/2011 Orthopedic Megan 719.46 Pain Joint Lower 1:30p Services Of Kayley Reed RPA-Wesly 724.5 Backache Unspec Office Visit 11/07/2011 2:00p Orthopedic Services Gurdeep Noel, 836.2 Dislocation Knee Of Manjit Max Tear Of Cartilage Or Meniscus Current Other Office Visit 01/11/2011 10:45a Neurosurgery Sj Lemus 305.1 Tobacco Use Services Of Urszula Haskins M.D. Disorder 847.2 Sprains & Strains Lumbar 305.1 Tobacco Use Disorder Office Visit 05/25/2010 8:49a [facility] Irene S. 786.50 Pain Chest Winter Li Unspec 401.1 Hypertension Benign 411.89 Ischemic Heart Disease Other 794.31 Electrocardiogram (ECG) (EKG) Abnormal 272.4 Hyperlipidemia Other Unspec Office Visit 05/24/2010 1:46p [facility] Connrotaang S. 411.89 Ischemic Heart Winter Li Disease Other 786.50 Pain Chest Unspec 794.31 Electrocardiogram (ECG) (EKG) Abnormal 401.1 Hypertension Benign 272.4 Hyperlipidemia Other Unspec [facility] 686.9 Local Infection Of 2:30a mark Pineda M.D. [facility] Subcutaneous Tissue Unspec [facility], 686.9 Local Infection Of 4:00a mark Pineda M.D. [facility] Subcutaneous Tissue Unspec Office Visit 01/12/2009 [facility] Manuel 686.9 Local Infection Of 3:45a [facility] Pineda [facility] Subcutaneous Tissue Unspec Office Visit 01/11/2009 [facility] Chayo Toney, 686.9 Local Infection Of 12:45a mark Pineda M.D. [facility] Subcutaneous Tissue Unspec Plan of Treatment Future Appointment(s):01/26/2019 11:00 am - Ica ECHO Schedule at [facility]01/30/2019 7:45 am - Ica ECHO Schedule at [facility]01/30/2019 8:15 am - Richa Felipe M.D. at [facility]2018 10:00 am - Agustin Jones MD at [facility]01/02/2019 - Richa Felipe M.D.R07.9 Chest pain, unspecifiedNew Orders:Echocardiogram, Scheduled: Stress Test, Exercise Echocardiogram, Scheduled: 01/30/19Comments:Hold diltiazem the day of stress echoFollow up:follow up after the tdjngB44.30 Sleep apnea, unspecifiedFollow up:make an appt with sleep team to do sleep study
--- OUTSIDE RECORDS SUMMARY | 2019-01-22 14:40 | XMS REPORT | Continuity of Care Document ---
:1965 External Reference #:[id number] Author Name Deng Esquivel Care Team Providers Name Role Phone Franck Jones MD Primary Care Physician Unavailable Payers Date Identification Numbers Payment Provider Subscriber Effective: 2001 Policy Number: [id number] Medicare Josefina Arshad PayID: [id number] [address] [place] [address] Effective: 2012 Policy Number: [id number] Medicaid Josefina Arshad PayID: [id number] [address] [place] [address] Onset: 2010 Policy Number: [id number] [facility] Josefina Arshad PayID: [id number] [place] [employer] Claims [address] [place] [address] Problems Active Problems Provider Date Neck pain Jose Bowling M.D. Onset: 09/06/2016 Inadequate sleep hygiene Tiki Keane DNP RN, WRITER PR[employer]UC[employer] Onset: 03/19/2017 Hypersomnia Tiki Keane DNP, RN, WRITER [employer] Onset: 03/19/2017 Sleep apnea Tiki Keane DNP, RN, WRITER PR[employer] Onset: 03/19/2017 Obstructive sleep apnea syndrome Tiki Keane DNP, RN, WRITER PR[employer] Onset: 05/2017 Localized, primary osteoarthritis Sarika Mijares M.D. Onset: 09/02/2017 Family History Date Family Member(s) Observation Comments General Cancer General Heart Disease Father due to Passed in 1990 () Father Throat Cancer Mother due to Passed in 1992 () Mother Heart Disease Mother Breast Cancer Mother Lung Cancer Siblings Several 3 sisters and 4 brothers, cancer hx for siblings Social History Type Date Description Comments Sex Unknown Lives With daughter/grandaughter Occupation Disabled Tobacco Use Start: Unknown End: Former Cigarette Smoker Unknown Smoking Status Reviewed: 11/04/17 Former Cigarette Smoker ETOH Use Denies alcohol use Recreational Drug Use Denies Drug Use Tobacco Use Start: Unknown End: Patient is a former Quit 2011, was Unknown smoker smoking 1 1/2 packs for 25 years Exercise Type/Frequency Walks 5 times a week Exercise Type/Frequency Exercises sporadically Allergies, Adverse Reactions, Alerts Active Allergies Reaction Severity Comments Date Reglan 02/11/2012 Erythromycin 09/09/2015 Cipro 09/09/2015 Augmentin 09/09/2015 Morphine 09/09/2015 Penicillins 03/19/2017 Medications Active Medications SIG Qnty Indications Ordering Date Provider Ickelli Hot Advanced Relief Apply 1 daily, 1 Unknown Pain Relief Patch more at bedtime 7.5% as needed Patches Lidocaine Apply 1 per day Unknown 5% Patches Allergy Injections 1x per week Unknown Pazeo 1 drop each day Jose 0.7% Solution every morning, 1 MD Minesh drop at night as needed Levocetirizine 1 by mouth per Franck Jones MD Dihydrochloride day 5mg Tablets Atenolol 1 by mouth daily Franck Jones MD 25mg Tablets Fluticasone Propionate 2 sprays each Unknown nostril qd. 50mcg/Act Suspension Mometasone Furoate use on scalp Unknown 0.1% daily for 2 week Solution on and one week off as needed Lorazepam 1 tablet twice a Unknown 0.5mg Tablets day plus two at night (4 per day total) for anxiety Omeprazole 1 by mouth daily Unknown 40mg Hydrocodone-Acetaminophe 1 every 6 hours Mariely Hatch, [...] - 10/16/2017 Fluid Pill Unknown - 10/15/2017 Triamterene/Hydrochlorot 1 by mouth every Unknown - hiazide day 09/30/2018 37.5-25mg Capsules Xyzal Allergy 24HR 1 by mouth every Unknown - 5mg day 11/03/2017 Tablets Medications Administered in Office Medication SIG Qnty Indications Ordering Provider Date Inj, Regadenoson, 0.1 MG Nadeem Fowler M.D. 10/09/2018 Injection Technetium TC 99M Nadeem Fowler M.D. 10/09/2018 Tetrofosmin, Per Unit Dose Up To 40 Millicuries Injection Technetium TC 99M Nadeem Fowler M.D. 10/09/2018 Tetrofosmin, Per Unit Dose Up To 40 Millicuries Injection Technetium TC 99M [facility]ca [facility] Schedule 10/24/2017 Tetrofosmin, Per Unit Dose Up To 40 Millicuries Injection Inj, Regadenoson, 0.1 MG Meir Clark, DO FACC 10/23/2017 Injection Technetium TC 99M Meir Clark, DO FAC 10/23/2017 Tetrofosmin, Per Unit Dose Up To 40 Millicuries Injection Depomedrol 40MG Sarika Mijares M.D. 09/02/2017 Injection Vital Signs Date Vital Result Comment 11/04/2017 9:32am Height 60.25 inches 5'0.25" Weight [...] Test Result H/L Range Note Creatinine 08/31/2016 [facility] Creatinine 0.82 mg/dL N 0.51- 0.[address] [place] [address] [phone] Egfr Non- 74.1 N >60 Egfr 95.3 N >60 1 Laboratory test 08/31/2016 [facility] Blood Urea 21 mg/dL N 6- [address] [place] [address] [phone] Surgical 02/12/2012 [facility] Surgical 2 Pathology 101 [facility] Pathology ----- <[place] [address] NOTE> [phone] Basic Metabolic 02/06/2012 [facility] Sodium 139 mmol/L 135- [address] [place] [address] [phone] Potassium 4.0 mmol/L 3.5-5.0 Chloride 105 mmol/L 101-111 Co2 (Carbon Dioxide) 28.0 mmol/L 22-32 Anion Gap 6.0 mmol/L 2-11 4 Glucose 79 mg/dL 70-100 BUN 12 mg/dL 6-24 Creatinine 0.7 mg/dL 0.50-1.40 One Over Creatinine 1.42 BUN/Creatinine Ratio 17.1 8-20 Calcium 10.9 mg/dL High 8.1-9.9 eGFR Non- 90.5 > 60 eGFR 116.4 > 60 5 Type And Screen 02/06/2012 [facility] Patient Blood A POSITIVE (Pre-Adm) [facility] [place] [address] [phone] Antibody Screen NEGATIVE Specimen Discard Date 02/20/12 6 Laboratory test 02/06/2012 [facility] PTT (Aptt) 27.5 SEC 25.1-38.[address] [place] [address] [phone] Protime 02/06/2012 [facility] Inr 0.85 Low 0.88-1.[address] [place] [address] [phone] Protime 10.1 SEC Low 10.3-13.5 8 CBC Auto Diff 02/06/2012 [facility] White Blood 6.0 CUMM 4.8- 10.8 [facility] [address] [phone] Red Cell Count 4.23 CUMM 4.2-5.4 Hemoglobin [...] Abs Basophils 0.1 0-0.2 Arthritis Panel 11/15/2011 [facility] Erythrocyte Sed 12 MM/HR 0-[address] [place] [address] [phone] Uric Acid 4.0 mg/dL 2.6-7.2 Antinuclear AB [...] (or dialysis) 2 --- RUN DATE: 02/14/12 [facility] NMI LIVE PAGE 1 RUN TIME: 1543 Specimen Inquiry RUN USER: INTERFACE -- Name: JOSEFINA ARSHAD Status: DIS IN Re02/12/12 Age/Sex: 46/F Unit#: [id number] Location: [facility] : [birth year] -- Specimen: [id number] SOUT Spec Date:02/12/12[facility] Dr: Deejay bennett MD Spec Type: SURGICAL P Received:02/13/12-1240 Copies to: SPECIMEN DISC LEFT L4-5 GROSS DESCRIPTION The specimen is received in formalin labelled Josefina Arshad, Disc Left L4-5, and consists of multiple golden-hung fibrous soft tissue fragments measuring 3.5 x 2.6 by up to 1.5 cm. Paper Carrier section, one cassette. DIAGNOSIS Intervertebral disc, L4-5, discectomy: Intervertebral disc material with myxoid degeneration. Signed Electronically by: BAYRON EL MD 02/14/12 1541 -- -- DEPARTMENT OF PATHOLOGY, [address] [place] [address] [facility] Permit #[id number] Bayron El M.D. Director Nico Henson M.D. Legal Instruments Examiner Dir erasmo -- 3 02/11 4 Anion [...] INR VALUE ALONE. 9 Test Performed by: [place] [id number] Electric Power Line Examiner: Misael Fuentes III, M.D. Procedures Date Code Description Status 10/09/2018 07602 Stress Test Completed 10/09/2018 31512 Myocardial Perfusion Imaging Tomographic (Spect) Completed Multiple Studies 12/03/2017 76605 Holter Monitor Review (24 hr)dr review & interp only Completed 11/22/2017 11981 ECG Monitor/Recording W/Visual Superimposition Scanning Completed 11/08/2017 62440 Polysomnography Sleep Staging 4+ Parameters W/Cpap Completed 10/23/2017 58626 Stress Test Completed 10/23/2017 61169 Myocardial Perfusion Imaging Tomographic (Spect) Completed Multiple Studies 09/02/2017 27906 Inject/Drain Joint/Bursa Major W/O US Completed 03/20/2017 59180 Sleep Study Unattended,HRT Rate,Oxygen Sat,Resp Completed Effort/Airflow 05/08/2016 99950865 Mammogram Completed 09/09/2015 97192 Nerve Conduction 03-04 Studies Completed 09/09/2015 30781 Needle Electromyography Complete, Five Or More Muscles Completed Studied 02/12/2012 78968 Laminotomy W/Decomp NRV RT,One Interspace,Lumbar Completed 11/07/2011 68621 Rad Exam; Knee, Ap&L Completed 11/07/2011 53788 Xray Knee 3 Views Completed 11/07/2011 93881 Rad Exam; Knee, Ap&L Completed 11/07/2011 54935 Xray Knee 3 Views Completed 05/25/2010 47813 Selective Coronary Angioplasty Completed 05/25/2010 07475 Selective Coronary Angioplasty Completed 05/25/2010 68448 S/I/R Inj Proc Vent And Or Atrial Completed 05/25/2010 91812 S/I/R Inj Proc Vent And Or Atrial Completed 05/25/2010 13196 Coronary Angiography Completed 05/25/2010 48048 Coronary Angiography Completed 05/25/2010 33323 Left Heart Catheterization Completed 05/25/2010 69957 Left Heart Catheterization Completed 05/25/2010 95699 Color Flow Doppler/Interp & Reprt Completed 05/25/2010 87246 Pulse Wave/Continuous-Interp.RPT Completed 05/25/2010 15931 ECHO Transthorasic Realtime 2D W Doppler & Color Flow Completed Hosp 05/24/2010 10979 Inj Proc LFT Vent/LFT Atrl Angio Completed 05/24/2010 06710 ECHO Transthorasic Realtime 2D W Doppler & Color Flow Completed Hosp 05/23/2010 17227 Treadmill Interp/Report Only Completed 05/23/2010 32118 Stress Test Supervsn W/Out I/R Completed Encounters Type Date Location Provider Dx Diagnosis Office Visit 11/20/2018 [facility] Joyce Hadley, R07.9 Chest pain, 10:52a Assoc,pc unspecified Hospitalists R82.90 Unspecified abnormal findings in urine R30.0 Dysuria I10 Essential (primary) hypertension M54.9 Dorsalgia, unspecified F41.9 Anxiety disorder, unspecified J45.909 Unspecified asthma, uncomplicated Z85.850 Personal history of malignant neoplasm of thyroid T78.40xA Allergy, unspecified, initial encounter Office Visit 11/04/2017 Pulmonology And Tiki G47.33 Obstructive sleep 9:30a Sleep [facility] Of AUSTYN Keane, RN, apnea (adult) Computer Training Specialist WRITER PRODUCER-BC (pediatric) G47.14 Hypersomnia due to medical condition R06.02 Shortness of breath Office Visit 09/30/2017 Orthopedic Sarika M17.12 Unilateral primary 1:15p Services Of Leona Mijares. osteoarthritis, left C.M.A. knee M25.562 Pain in [...] Obstructive sleep 9:45a [facility] AUST[facility] Keane, RN, apnea (adult) [facility] WRITER PRODUCER-BC (pediatric) G47.14 Hypersomnia due to medical condition Office Visit 03/19/2017 Pulmonology And Tiki G47.30 Sleep apnea, 9:30a [facility] Keane, RN, unspecified [facility]-BC G47.14 Hypersomnia due to medical condition Z72.821 Inadequate sleep hygiene Office Visit 09/06/2016 9:45a Neurosurgery Joes Bowling, M54.2 Cervicalgia Services Of Urszula Max Office Visit 09/03/2016 1:15p Surgical Carolynsindi Sorto N63 Unspecified lump Associates Of Urszula Flores MD in breast M54.89 Other dorsalgia R13.10 Dysphagia, unspecified Office Visit 08/27/2016 2:00p Surgical Carolynsindi Sorto N63 Unspecified lump [facility] Urszula Flores MD in breast D48.7 Neoplasm of uncertain behavior of other specified sites Office Visit 02/04/2015 11:04a [facility] Bisi Boyer, 592.1 Calculus Of Assoc,pc N.P. Ureter Hospitalists 788.0 Colic Renal 278.01 Obesity Morbid Office Visit 02/03/2015 11:04a [facility] Bisi Boyer, 592.1 Calculus Of Assoc,pc N.P. Ureter Hospitalists 788.0 Colic Renal 278.01 Obesity Morbid Office Visit 02/02/2015 11:03a [facility] Bisi Boyer, 592.1 Calculus Of Assoc,pc N.P. Ureter Hospitalists 788.0 Colic Renal 278.01 Obesity Morbid Office Visit 01/31/2015 11:01a [facility] Devin Siu, 592.1 Calculus Of mark Pineda M.D. Ureter Hospitalists 788.0 Colic Renal 278.01 Obesity Morbid Office Visit 01/23/2012 Neurosurgery Deejay Benitez 722.10 Intervertebral Disc 2:20p Services Of Urszula Almazan M.D. Displacement Lumbar W/O Myelopathy Office Visit 11/21/2011 Orthopedic Megan 719.46 Pain Joint Lower 1:30p Services Of Manjit Sloan, Leg RPA-C 724.5 Backache Unspec Office Visit 11/07/2011 2:00p Orthopedic Services Gurdeep Noel, 836.2 Dislocation Knee Of Manjit Max Tear Of Cartilage Or Meniscus Current Other Office Visit 01/11/2011 10:45a Neurosurgery Sj Lemus 305.1 Tobacco Use Services Of Urszula Haskins M.D. Disorder 847.2 Sprains & Strains Lumbar 305.1 Tobacco Use Disorder Office Visit 05/25/2010 8:49a [facility] Qutaybnatalia S. 786.50 Pain Chest Winter Li Unspec 401.1 Hypertension Benign 411.89 Ischemic Heart Disease Other 794.31 Electrocardiogram (ECG) (EKG) Abnormal 272.4 Hyperlipidemia Other Unspec Office Visit 05/24/2010 1:46p [facility] Qutaybeh S. 411.89 Ischemic Heart Winter Li Disease Other 786.50 Pain Chest Unspec 794.31 Electrocardiogram (ECG) (EKG) Abnormal 401.1 Hypertension Benign 272.4 Hyperlipidemia Other Unspec Office Visit 01/14/2009 [facility] Gildardo Muhammad, 686.9 Local Infection Of 2:30a mark Pineda M.D. [facility] Hospital[facility] Subcutaneous Tissue Unspec Office Visit 01/13/2009 [facility] Gildardo Muhammad, 686.9 Local Infection Of 4:00a mark Pineda M.D. [facility] Subcutaneous Tissue Unspec Office Visit 01/12/2009 [facility] Manuel 686.9 Local Infection Of 3:45a mark Pineda Skin Wan Max Subcutaneous Tissue Unspec Office Visit 01/11/2009 [facility] Chayo Toney, 686.9 Local Infection Of 12:45a mark Pineda M.D. [facility] Subcutaneous Tissue Unspec Plan of Treatment Future Appointment(s):01/05/2019 10:00 am - Agustin Jones MD at [facility] Bqarzfgshik40/21/2018 - Tiki Keane DNP, RN, WRITER PRODUCER-BCG47.33 Obstructive sleep apnea (adult) (pediatric)Comments:Sleep Apnea - HST 03/20/17 wt 240 AHI 10.6/hour, papi oxygen 82%On CPAP auto AHI 1.6/hourFollow up:2 monthsRecommendations:Continue PAP device, Benefitting and compliant with treatment. Cleaning Wipe off mask daily (baby wipe-no scent, or warm water) Clean mask, tubing, filter, and water chamber weekly in mild no scent dish soap and water. Hang to dry. So-Clean is an option (not covered by insurance) If you have any sleepiness while driving you MUST avoid operating a vehicle or machinery. If you have difficulty with your equipment, or need to replace your mask or hoses, please contact your homecare agency. A weight change of 20 pounds or more may have an effect on your equipment; if you are experiencing problems please call for an appointment. If you have any further questions, please call the [facility] at [phone].g47.14 Hypersomnia due to medical conditionRecommendations:Should improve with increased PAP use.R06.02 Shortness of breathRecommendations:Discuss with Dr. Jones and or Dr. Ralph Garcia about your shortness of breath despite medications.You would need a referral for pulmonology to see Dr. Messina for your asthma. Please ask/consent forDr. Garcia to send your PFTs to our office.
--- NOTE | 2019-01-22 16:02 | ED ---
Lower Extremity - HPI Summary HPI Summary: Pt. is a 53 y.o female who presents to the ER for a right leg injury that occurred today. Pt. states she was helping her grandchild out of the pool when then pool ladder fell onto her right leg. No other injuries sustained. Pain with ambulation. Sxs are mild in severity. - History of Current Complaint Chief Complaint: EDExtremityLower Stated Complaint: RT FOOT INJ PER PT Time Seen by Provider: 01/22/19 16:01 Hx Obtained From: Patient Pain Intensity: 8 - Allergies/Home Medications Allergies/Adverse Reactions: Allergies Allergy/AdvReac Type Severity Reaction Status Date / Time amoxicillin [From Augmentin] Allergy Intermediate Difficulty Verified 01/22/19 17:00 Breathing ciprofloxacin [From Cipro] Allergy Intermediate Difficulty Verified 01/22/19 17: 00 Breathing clavulanic acid Allergy Intermediate Difficulty Verified 01/22/19 17:00 [From Augmentin] Breathing erythromycin base Allergy Intermediate Difficulty Verified 01/22/19 17:00 Breathing morphine Allergy Intermediate See Comment Verified 01/22/19 17:00 Penicillins Allergy Intermediate Difficulty Verified 01/22/19 17:00 Breathing metoclopramide AdvReac Unknown See Comment Verified 01/22/19 17:00 PMH/Surg Hx/FS Hx/Imm Hx Previously Healthy: Yes Endocrine/Hematology History: Reports: Hx Thyroid Disease - thyroid cancer with resection Denies: Hx Diabetes, Hx Anemia, Hx Unexplained Bleeding Cardiovascular History: Reports: Hx Angina, Hx Cardiac Arrest - April 2011 seen at [facility], possible small cardiac arrest per patient report, Hx Hypotension, Hx Hypertension Denies: Hx Aneurysm, Hx Angioplasty, Hx Auto Implanted Cardiovert Defib, Hx Cardiomegaly, Hx Congenital Heart Disease, Hx Congestive Heart Failure, Hx Coronary Artery Disease, Hx Deep Vein Thrombosis, Hx Hypercholesterolemia, Hx Pacemaker/ICD, Hx Peripheral Vascular Disease, Hx Rheumatic Fever, Hx Syncope, Hx Valvular Heart Disease, Other Cardiovascular Problems/Disorders Respiratory History: Reports: Hx Asthma, Hx Chronic Obstructive Pulmonary Disease (COPD), Hx Pneumonia, Hx Seasonal Allergies, Hx Sleep Apnea - DOES NOT USE CPAP, Other Respiratory Problems/Disorders - Hx COPD Denies: Hx Cystic Fibrosis, Hx Lung Cancer, Hx Pleural Effusion, Hx Pulmonary Edema, Hx Pulmonary Embolism GI History: Reports: Hx Gastroesophageal Reflux Disease Denies: Hx Cirrhosis, Hx Crohn's Disease, Hx Diverticulosis, Hx Gall Bladder Disease, Hx Gastrointestinal Bleed, Hx Hiatal Hernia, Hx Irritable Bowel, Hx Jaundice, Hx Obstructive Bowel, Hx Ileostomy, Hx Pyloric Stenosis, Hx Ulcer Comment Only: Other GI Disorders - ulcer, incontinence at times History: Reports: Hx Kidney Stones, Hx Renal Disease - stones- nephrostomy tube removed, Other Problems/Disorders - cervical cancer with hysterectomy Denies: Hx Dialysis Musculoskeletal History: Reports: Hx Arthritis, Hx Rheumatoid Arthritis, Hx Back Problems, Hx Bursitis - L KNEE, Hx Orthopedic Injury, Other Musculoskeletal History - LAMINECTOMY 2007 Denies: Hx Congenital Bone Abnormalities, Hx Fibromyalgia, Hx Gout, Hx Osteoporosis, Hx Scoliosis, Hx Tendonitis Sensory History: Reports: Hx Contacts or Glasses, Hx Vision Problem Denies: Hx Cataracts, Hx Eye Injury, Hx Eye Prosthesis, Hx Glaucoma, Hx Macular Degeneration, Hx Deafness, Hx Hearing Aid, Hx Hearing Problem, Other Sensory Impairments Opthamlomology History: Reports: Hx Contacts or Glasses, Hx Vision Problem Denies: Hx Cataracts, Hx Eye Injury, Hx Eye Prosthesis, Hx Glaucoma, Hx Macular Degeneration, Other Sensory Impairments Neurological History: Reports: Hx Headaches, Hx Migraine, Hx Seizures - A CHILD R/T MIGRAINES, Hx Spinal Cord Injury, Other Neuro Impairments/Disorders - PAIN CLINIC PT Psychiatric History: Reports: Hx Anxiety - takes xanax, Hx Depression Denies: Hx Panic Disorder - Cancer History Cancer Type, Location and Year: CERVICAL CARCINOMA, THYROID CANCER Hx Chemotherapy: No Hx Radiation Therapy: Yes - THYROID - Surgical History Surgery Procedure, Year, and Place: LUMBAR SURGERY L3-S1 October. 1979 EYE INJURY [place]- CLEARED IN 2008 VIA ORBIT X-RAYS BY DR [place]. 1991 [place] [place]. 1995 BILATERAL TUBAL LIGATION, [place]. hysterectomy/2003 [place]. 2003 BACK TUMOR BENIGN [place]. 2007 L3,4,5 DISCECTOMY [facility]. 2003 BREAST BIOPSY [place]. 2012 BACK SURGERY LAMINECTOMY [facility]. MULTIPLE RIGHT FOOT SURGERIES ONE AT [facility]. THYROID , nephrostomy tube removed, left shoulder Hx Anesthesia Reactions: Yes - PT STATES WOKE UP DURING FOOT SURGERY 2009 [facility] - Immunization History Date of Tetanus Vaccine: unknown Infectious Disease History: No Infectious Disease History: Denies: Hx Hepatitis, Hx Tuberculosis, Traveled Outside the [place] in Last 30 Days - Family History Known Family History: Positive: None - reviewed & noncontributory, Cardiac Disease, Hypertension, Other - Breast cancer., Non-Contributory - Social History Occupation: Unemployed Lives: With Family Alcohol Use: None Hx Substance Use: No Substance Use Type: Reports: None Hx Tobacco Use: Yes Smoking Status (MU): Former Smoker Type: Cigarettes Length of Time of Smoking/Using Tobacco: 30 YRS Have You Smoked in the Last Year: No Review of Systems Positive: Other - pain to right lower leg Positive: Bruising Positive: Paresthesia All Other Systems Reviewed And Are Negative: Yes Physical Exam Triage Information Reviewed: Yes Vital Signs On Initial Exam: Initial Vitals Temp Pulse Resp BP Pulse Ox 97.5 F 74 16 138/89 98 01/22/19 14:31 01/22/19 14:31 01/22/19 14:31 01/22/19 14:31 01/22/19 14:31 Vital Signs Reviewed: Yes Appearance: Positive: Well-Appearing - Pt. sitting in wheelchair in NAD. Family present. Skin: Positive: Warm, Dry Head/Face: Positive: Normal Head/Face Inspection Eyes: Positive: Normal, EOMI Neck: Positive: Supple Musculoskeletal: Positive: Other - Pain on palpation to proximal right tibfib. Small ecchymosis to right lateral malleolus and foot. Neurological: Positive: Normal, CN Intact II-III Psychiatric: Positive: Affect/Mood Appropriate Diagnostics - Vital Signs Vital Signs Temp Pulse Resp BP Pulse Ox 01/22/19 14:31 97.5 F 74 16 138/89 98 - Laboratory Lab Statement: Any lab studies that have been ordered have been reviewed, and results considered in the medical decision making process. Lower Extremity Course/Dx - Course Course Of Treatment: Xrays negative for fx or dislocation per radiology. Advised Ice and elevate. Motrin for pain as directed. To f.u with PCP if pain persist and return to ER if sxs change or worsen. - Diagnoses Differential Diagnosis/HQI/PQRI: Positive: Contusion, Fracture (Closed), Sprain , Strain Provider Diagnoses: Contusion of leg Discharge - Sign-Out/Discharge Documenting (check all that apply): Patient Departure Patient Received Moderate/Deep Sedation with Procedure: No - Discharge Plan Condition: Good Disposition: HOME Patient Education Materials: Foot Contusion (ED) Referrals: Franck Jones MD [Primary Care Provider] - Additional Instructions: Follow up with PCP if pain persist Ice and elevate Ibuprofen for pain and swelling as directed Return to ER if symptoms change or worsen - Billing Disposition and Condition Condition: GOOD Disposition: Home
[2019-01-22] MEDS ORDERED: Ibuprofen TAB* 600 MG PO ONE (16:27)
[2019-01-22 16:56] VITALS: BP 127/63
[2019-01-22] MEDS ORDERED: Ibuprofen TAB* 600 MG ONE (17:04)
== END 2019-01-22 17:32 | disposition home or self-care (01) ==
LOC: ED 14:24
DX: S80.11XA Contusion of right lower leg, initial encounter (principal); W20.8XXA Other cause of strike by thrown, projected or falling object, initial encounter; Y93.89 Activity, other specified; Y92.9 Unspecified place or not applicable; I10 Essential (primary) hypertension; J44.9 Chronic obstructive pulmonary disease, unspecified; M06.9 Rheumatoid arthritis, unspecified; F41.9 Anxiety disorder, unspecified; Z85.41 Personal history of malignant neoplasm of cervix uteri; Z85.850 Personal history of malignant neoplasm of thyroid; Z88.1 Allergy status to other antibiotic agents; Z88.5 Allergy status to narcotic agent; Z88.0 Allergy status to penicillin; Z88.8 Allergy status to other drugs, medicaments and biological substances; Z87.891 Personal history of nicotine dependence
CPT/HCPCS: 99281; A9270-GY

== ENCOUNTER 2024-07-15 13:51 | Observation (INO) ==
[2024-07-15] MEDS: Iohexol 350 (CONTRAST) 500 ML MDV IV ONE (15:50)
[2024-07-15 15:56] LABS: ABS Basophils 0.1 10^3/uL (0.0-0.1); ABS Lymphocytes 1.4 10^3/uL (1.0-4.8); ABS Monocytes 0.6 10^3/uL (0.0-0.9); ABS Neutrophils 4.6 10^3/uL (1.5-7.6); Eosinophil % 0.7 %; Hematocrit 38.8 % (35-45); Lymphocyte % 21.1 %; Mean Corpuscular Hemoglobin 29.3 pg (27-33); Mean Corpuscular Hgb Conc 33.6 g/dL (31-36); Mean Corpuscular Volume 87.2 fL (80-97); Mean Platelet Volume 9.2 fL (7.5-11.2); Platelet Count 256 10^3/uL (150-450); Red Blood Count 4.45 10^6/uL (3.63-4.92); Red Cell Distribution Width 13.9 % (12-17); White Blood Count 6.6 10^3/uL (3.8-11.8)
[2024-07-15] MEDS: Meropenem 1 GM PREMIX(*) 1 GM/50 ML BAG IV ONE (15:59)
[2024-07-15] MEDS: Lactated Ringers 1000 ml BAG 1,000 ML IV ONE (16:37)
[2024-07-15 16:59] LABS: ALT 16 U/L (7-52); Albumin 4.2 g/dL (3.5-5.7); Albumin/Globulin Ratio 1.7 (1-3); Alkaline Phosphatase 81 U/L (35-149); Anion Gap 2 mmol/L (2-16); Blood Urea Nitrogen 8 mg/dL (6-24); C Reactive Protein 6.87 mg/L (<8.01); CO2 Carbon Dioxide 27 mmol/L (22-32); Calcium 10.3 mg/dL (8.6-10.3); Chloride 102 mmol/L (101-111); Creatinine, Serum 0.83 mg/dL (0.51-0.95); Globulin 2.5 g/dL (2-4); Glucose 96 mg/dL (70-100); Lipase 27 U/L (11.0-82.0); Sodium 131 mmol/L (135-145); Total Bilirubin 0.7 mg/dL (0.2-1.0); Total Protein 6.7 g/dL (6.4-8.9); eGFR CKD-EPI 82.2 (>60)
[2024-07-15 17:18] LABS: Urine Appearance Clear; Urine Bilirubin Negative (Negative); Urine Blood Negative (Negative); Urine Color Light-Yellow; Urine Glucose Negative (Negative); Urine Ketones Negative (Negative); Urine Nitrite Negative (Negative); Urine Protein Negative (Negative); Urine Specific Gravity >1.050 (1.002-1.030); Urine Urobilinogen Negative (Negative); Urine pH 7.5 (5.0-8.0)
[2024-07-15] MEDS ORDERED: Morphine 2 MG/ML SYRINGE IV PRN (20:35)
[2024-07-15] MEDS: Ondansetron 4 mg VIAL 2 MG/ML 2 ml VIAL IV PRN (21:12)
[2024-07-15] MEDS: DULoxetine DR 30 mg CAP PO SCH (21:12)
[2024-07-15] MEDS: Enoxaparin 40 MG/0.4 ML SYR SUBCUT SCH (21:15)
[2024-07-15] MEDS: Meropenem 1 GM PREMIX(*) 1 GM/50 ML BAG IV SCH (21:22)
[2024-07-15 22:57] LABS: Potassium Redraw 3.3 mmol/L (3.5-5.0)
[2024-07-16] MEDS: HYDROmorphone 0.5 MG/0.5 ML SYRINGE IV SLOW PU PRN (00:13)
[2024-07-16 05:47] LABS: ABS Basophils 0.1 10^3/uL (0.0-0.1); ABS Eosinophils 0.1 10^3/uL (0.0-0.5); ABS Lymphocytes 1.7 10^3/uL (1.0-4.8); ABS Monocytes 0.4 10^3/uL (0.0-0.9); ABS Neutrophils 1.9 10^3/uL (1.5-7.6); Eosinophil % 1.7 %; Hematocrit 33.4 % (35-45); Hemoglobin 11.6 g/dL (11.5-14.3); Lymphocyte % 41.5 %; Mean Corpuscular Hemoglobin 30.1 pg (27-33); Mean Corpuscular Hgb Conc 34.7 g/dL (31-36); Mean Corpuscular Volume 86.6 fL (80-97); Mean Platelet Volume 8.8 fL (7.5-11.2); Platelet Count 198 10^3/uL (150-450); Red Blood Count 3.85 10^6/uL (3.63-4.92); White Blood Count 4.2 10^3/uL (3.8-11.8)
[2024-07-16 06:06] LABS: Calcium 9.6 mg/dL (8.6-10.3); Creatinine, Serum 0.76 mg/dL (0.51-0.95); Potassium 3.9 mmol/L (3.5-5.0); eGFR CKD-EPI 91.3 (>60)
[2024-07-16] MEDS: Lidocaine PATCH 5% PATCH TRANSDERM ONE (08:11)
[2024-07-16] MEDS: Lactated Ringers 1000 ml BAG 1,000 ML IV ONE ×2 (08:37→08:43)
[2024-07-16 14:16] VITALS: BP 104/58
[2024-07-16] MEDS: Gentamicin ADULT 300 MG in NS 0.9% 100 ml BAG 100 ML IVPB ONE (14:37)
== END 2024-07-16 16:45 | disposition home or self-care (01) ==
LOC: EDHOLD 13:51 → ED 13:51 → MED 19:59
PROVIDERS: ADMIT Hospitalist; ATTEND Hospitalist